=== PATIENT | male | born 2000 | race Caucasian/White ===

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

== ENCOUNTER 2021-01-11 15:37 | Inpatient (IN) | payer MEDICAID, OTHER ==
[~2021-01-11] VITALS: Ht 170.2 cm; Wt 58.0 kg
[2021-01-11] MEDS ORDERED: CETI-24 PO (15:51)
[2021-01-11] MEDS ORDERED: POTA10808 PO (15:51)
[2021-01-11 16:48] LABS: HEMATOCRIT 40.8 % (42.0-52.0); HEMOGLOBIN 13.6 g/dl (13.5-17.5); MEAN CORPUSCULAR HGB CONC 33.3 g/dl (32.0-36.5); PLATELET COUNT, AUTOMATED 259 10^3/uL (150-450); RED BLOOD COUNT 4.69 10^6/uL (4.30-6.10); WHITE BLOOD COUNT 9.5 10^3/uL (4.0-10.0)
[2021-01-11 17:15] LABS: AMPHETAMINES LEVEL URINE NEGATIVE (NEGATIVE); BARBITURATES URINE NEGATIVE (NEGATIVE); BENZODIAZEPINES URINE NEGATIVE (NEGATIVE); CANNABINOIDS URINE NEGATIVE (NEGATIVE); COCAINE METABOLITE URINE NEGATIVE (NEGATIVE); METHADONE URINE NEGATIVE (NEGATIVE); OPIATES URINE NEGATIVE (NEGATIVE); PHENCYCLIDINE URINE NEGATIVE (NEGATIVE)
[2021-01-11 17:24] LABS: ACETAMINOPHEN LEVEL < 2.0 UG/ML (10.0-30.0); ALBUMIN 4.3 GM/DL (3.2-5.2); ALT/SGPT 13 U/L (12-78); BILIRUBIN,DIRECT < 0.1 MG/DL (0.0-0.2); BILIRUBIN,TOTAL 0.4 MG/DL (0.2-1.0); BLOOD UREA NITROGEN 14 MG/DL (7-18); CARBON DIOXIDE LEVEL 28 MEQ/L (21-32); CHLORIDE LEVEL 108 MEQ/L (98-107); CREATININE FOR GFR 0.77 MG/DL (0.70-1.30); ETHYL ALCOHOL (ETHANOL) < 0.003 % (0.000-0.010); GLUCOSE, FASTING 83 MG/DL (70-100); POTASSIUM SERUM 3.9 MEQ/L (3.5-5.1); SALICYLATE LEVEL < 1.7 MG/DL (5.0-30.0); SODIUM LEVEL 142 MEQ/L (136-145); TOTAL PROTEIN 8.1 GM/DL (6.4-8.2)
[2021-01-11 18:39] LABS: RSV AMPLIFICATION NEGATIVE (NEGATIVE)
[2021-01-11] MEDS ORDERED: ACETAMINOPHEN TAB 650MG DOSE (2X325MG) PO PRN (18:45)
[2021-01-11] MEDS ORDERED: MOM 30ML SUSPENSION UDC PO PRN (18:45)
[2021-01-11] MEDS ORDERED: MAALOX 30 ML SUSP *UDC PO PRN (18:45)
[2021-01-11 21:39] VITALS: BP 136/89
[2021-01-11] MEDS: traZODone 50 MG TAB PO PRN (22:49)
[2021-01-12 06:55] VITALS: BP 148/83
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
[2021-01-12] MEDS: FLUoxetine 20 MG CAP PO SCH (14:12)
[2021-01-12 16:18] VITALS: BP 136/94
[2021-01-12] MEDS: POTASSIUM CITRATE 1080 MG (10MEQ) TAB PO SCH (17:36)
[2021-01-12] MEDS: CETIRIZINE (ZyrTEC) 10 MG TAB PO SCH (20:32)
[2021-01-12] MEDS: MESALAMINE 400 MG CAPSULE DELAYED RELEASE (DELZICOL) PO SCH (20:32)
[2021-01-12] MEDS: traZODone 50 MG TAB PO PRN (22:14)
[2021-01-13 06:30] VITALS: BP 112/62
[2021-01-13] MEDS: POTASSIUM CITRATE 1080 MG (10MEQ) TAB PO SCH ×3 (08:31→17:51)
[2021-01-13] MEDS: FLUoxetine 20 MG CAP PO SCH (08:31)
[2021-01-13] MEDS: MESALAMINE 400 MG CAPSULE DELAYED RELEASE (DELZICOL) PO SCH ×2 (08:32→20:16)
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
[2021-01-13 16:40] VITALS: BP 135/73
[2021-01-13] MEDS: CETIRIZINE (ZyrTEC) 10 MG TAB PO SCH (20:16)
[2021-01-13] MEDS: traZODone 50 MG TAB PO PRN (22:10)
[2021-01-14 06:21] VITALS: BP 130/70
[2021-01-14] MEDS: POTASSIUM CITRATE 1080 MG (10MEQ) TAB PO SCH ×3 (07:42→17:46)
[2021-01-14] MEDS: FLUoxetine 20 MG CAP PO SCH (09:10)
[2021-01-14] MEDS: MESALAMINE 400 MG CAPSULE DELAYED RELEASE (DELZICOL) PO SCH ×2 (09:11→21:42)
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
[2021-01-14 16:30] VITALS: BP 143/90
[2021-01-14] MEDS: CETIRIZINE (ZyrTEC) 10 MG TAB PO SCH (21:41)
[2021-01-14] MEDS: traZODone 50 MG TAB PO PRN (22:10)
[2021-01-15 06:11] VITALS: BP 117/56
[2021-01-15] MEDS: MESALAMINE 400 MG CAPSULE DELAYED RELEASE (DELZICOL) PO SCH ×2 (08:40→21:36)
[2021-01-15] MEDS: FLUoxetine 10 MG CAP PO SCH (08:40)
[2021-01-15] MEDS: POTASSIUM CITRATE 1080 MG (10MEQ) TAB PO SCH ×3 (08:40→17:34)
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
[2021-01-15 18:45] VITALS: BP 141/82
[2021-01-15] MEDS: CETIRIZINE (ZyrTEC) 10 MG TAB PO SCH (21:35)
[2021-01-15] MEDS: traZODone 50 MG TAB PO PRN (23:02)
[2021-01-16 06:00] VITALS: BP 90/50
[2021-01-16] MEDS: MESALAMINE 400 MG CAPSULE DELAYED RELEASE (DELZICOL) PO SCH ×2 (08:34→21:12)
[2021-01-16] MEDS: POTASSIUM CITRATE 1080 MG (10MEQ) TAB PO SCH ×3 (08:35→17:04)
[2021-01-16] MEDS: FLUoxetine 10 MG CAP PO SCH (08:35)
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
[2021-01-16 16:15] VITALS: BP 120/57
[2021-01-16] MEDS: CETIRIZINE (ZyrTEC) 10 MG TAB PO SCH (21:12)
[2021-01-16] MEDS: traZODone 50 MG TAB PO PRN (23:07)
[2021-01-17 06:16] VITALS: BP 99/55
[2021-01-17] MEDS: FLUoxetine 10 MG CAP PO SCH (08:22)
[2021-01-17] MEDS: POTASSIUM CITRATE 1080 MG (10MEQ) TAB PO SCH ×3 (08:22→17:11)
[2021-01-17] MEDS: MESALAMINE 400 MG CAPSULE DELAYED RELEASE (DELZICOL) PO SCH ×2 (08:22→21:18)
[2021-01-17 16:06] VITALS: BP 125/78
[2021-01-17] MEDS: CETIRIZINE (ZyrTEC) 10 MG TAB PO SCH (21:18)
[2021-01-17] MEDS: traZODone 50 MG TAB PO PRN (23:04)
[2021-01-18 06:25] VITALS: BP 96/55
[2021-01-18] MEDS: FLUoxetine 10 MG CAP PO SCH (08:06)
[2021-01-18] MEDS: POTASSIUM CITRATE 1080 MG (10MEQ) TAB PO SCH ×3 (08:06→18:02)
[2021-01-18] MEDS: MESALAMINE 400 MG CAPSULE DELAYED RELEASE (DELZICOL) PO SCH ×2 (08:06→21:32)
[2021-01-18 16:13] VITALS: BP 132/76
[2021-01-18] MEDS: CETIRIZINE (ZyrTEC) 10 MG TAB PO SCH (21:32)
[2021-01-18] MEDS: traZODone 50 MG TAB PO PRN (23:11)
[2021-01-19 06:41] VITALS: BP 119/83
[2021-01-19] MEDS ORDERED: FLUO20CA22 PO (08:08)
[2021-01-19] MEDS: POTASSIUM CITRATE 1080 MG (10MEQ) TAB PO SCH ×2 (08:23→12:30)
[2021-01-19] MEDS: MESALAMINE 400 MG CAPSULE DELAYED RELEASE (DELZICOL) PO SCH (08:23)
[2021-01-19] MEDS ORDERED: FLUoxetine 10 MG CAP PO SCH (09:00)
[2021-01-19] MEDS ORDERED: FLUoxetine 20 MG CAP PO SCH (09:00)
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
[2021-01-19] MEDS ORDERED: TRAZ-252 PO (11:55)
== END 2021-01-19 12:30 | disposition home or self-care (01) | DRG 754 ==
LOC: M ED 15:37 → M ED INP 18:41 → M PSY 20:48
PROVIDERS: ADMIT Psychiatry & Neurology Psychiatry; ATTEND Psychiatry & Neurology Child & Adolescent Psychiatry
DX: F43.21 Adjustment disorder with depressed mood (principal); K50.90 Crohn's disease, unspecified, without complications; R45.851 Suicidal ideations; Q61.5 Medullary cystic kidney; F43.10 Post-traumatic stress disorder, unspecified; I10 Essential (primary) hypertension; Z62.810 Personal history of physical and sexual abuse in childhood; Z20.822 Contact with and (suspected) exposure to COVID-19; Z79.899 Other long term (current) drug therapy; Z63.8 Other specified problems related to primary support group

== ENCOUNTER 2021-02-03 19:48 | Emergency (ER) | payer MEDICAID, OTHER ==
[~2021-02-03] VITALS: Ht 170.2 cm; Wt 57.6 kg
[~2021-02-03 19:48] MED LIST changes: +CETI-24 PO; +FLUO20CA22 PO; +POTA10808 PO; +TRAZ-252 PO
[2021-02-03] MEDS ORDERED: ONDANSETRON 4MG/2ML VIAL IV PRN (21:05)
[2021-02-03] MEDS ORDERED: NS 1,000 ML IV ONE (21:05)
[2021-02-03] MEDS ORDERED: ACETAMINOPHEN TAB 650MG DOSE (2X325MG) PO ONE (21:10)
[2021-02-03 21:52] LABS: BASO # 0.1 10^3/uL (0.0-0.2); BASO % 0.5 % (0.0-1.0); EOS # 2.6 10^3/uL (0.0-0.5); HEMATOCRIT 42.7 % (42.0-52.0); LYMPH # 1.8 10^3/uL (1.5-5.0); LYMPH % 16.9 % (24.0-44.0); MEAN CORPUSCULAR HEMOGLOBIN 28.6 pg (27.0-33.0); MEAN CORPUSCULAR HGB CONC 32.8 g/dl (32.0-36.5); MEAN CORPUSCULAR VOLUME 87.1 fl (80.0-96.0); MONO # 1.6 10^3/uL (0.0-0.8); MONO % 14.8 % (2.0-8.0); NEUTROPHILS # 4.6 10^3/uL (1.5-8.5); NEUTROPHILS % 43.1 % (36.0-66.0); PLATELET COUNT, AUTOMATED 277 10^3/uL (150-450); WHITE BLOOD COUNT 10.6 10^3/uL (4.0-10.0)
[2021-02-03] MEDS ORDERED: ISOVUE-370 76% 100ML VIAL As Ordered ONE (22:02)
[2021-02-03 22:17] LABS: ALBUMIN 3.9 GM/DL (3.2-5.2); ALT/SGPT 12 U/L (12-78); BILIRUBIN,DIRECT < 0.1 MG/DL (0.0-0.2); BILIRUBIN,TOTAL 0.3 MG/DL (0.2-1.0); LIPASE 64 U/L (73-393); TOTAL PROTEIN 7.6 GM/DL (6.4-8.2)
[2021-02-03 22:45] LABS: EOS % 24.4 % (0.0-3.0)
--- NOTE | 2021-02-03 23:16 | REPVR ---
PROCEDURE INFORMATION: Exam: CT Abdomen and Pelvis with Contrast Exam date and time: 02/03/21 (10:09pm) Age: 20 years old Clinical indication: LLQ pain. Rectal bleeding. Fever. History of Crohn's disease. TECHNIQUE: Imaging protocol: Computed tomography of the abdomen and pelvis with contrast. Radiation optimization: All CT scans at this facility use at least one of these dose optimization techniques: automated exposure control; mA and/or kV adjustment per patient size (includes targeted exams where dose is matched to clinical indication); or iterative reconstruction. Contrast material: Isovue 370 Contrast volume: 100 ml Contrast route: IV COMPARISON: CT ABDOMEN PELVIS of 04/23/15 FINDINGS: Liver: No mass. Mild fatty infiltration. Gallbladder and bile ducts: Normal. No calcified stones. No ductal dilation. Pancreas: Normal. No ductal dilation. Spleen: Prominent spleen. Adrenal glands: Normal. No mass. Kidneys and ureters: Normal. No hydronephrosis. Stomach and bowel: Extensive colonic wall thickening, extending from the distal transverse colon to the rectum. No abscess. No bowel obstruction. No free air. Appendix: No evidence of appendicitis. Intraperitoneal space: Unremarkable. No free air. No significant fluid collection. Vasculature: Unremarkable. No abdominal aortic aneurysm. Lymph nodes: Unremarkable. No enlarged lymph nodes. Urinary bladder: Unremarkable as visualized. Reproductive: Unremarkable as visualized. Bones/joints: Unremarkable. No acute fracture. Soft tissues: Unremarkable. IMPRESSION: Findings compatible with a nonspecific left-sided colitis, extending from the distal transverse colon to the rectum -- compatible with inflammatory bowel disease, eg. No bowel obstruction. No free air. No abscess. Clinical correlation is needed. Prominent spleen. Electronically signed by: Mildred Ramos On 02/03/2021 23:15:58 PM
[2021-02-03] MEDS ORDERED: AUGM875T28 PO (23:38)
[2021-02-03] MEDS ORDERED: ZOFR4TAB16 PO (23:39)
[2021-02-03] MEDS ORDERED: AUGMENTIN 875 MG TAB PO ONE (23:40)
[2021-02-03 23:53] VITALS: BP 131/64
== END 2021-02-03 23:55 | disposition home or self-care (01) ==
LOC: M ED 19:48
DX: K50.90 Crohn's disease, unspecified, without complications (principal); R11.2 Nausea with vomiting, unspecified; N18.9 Chronic kidney disease, unspecified; Q61.5 Medullary cystic kidney; Z79.899 Other long term (current) drug therapy
CPT/HCPCS: 74177; 80047; 80076; 83605; 83690; 85025; 96361; 96374; 99284; J2405; Q9967

== ENCOUNTER 2021-02-06 16:08 | Inpatient (IN) | payer OTHER ==
[~2021-02-06] VITALS: Ht 170.2 cm; Wt 56.8 kg
[~2021-02-06 16:08] MED LIST changes: +AUGM875T28 PO; +ZOFR4TAB16 PO
[2021-02-06] MEDS ORDERED: methylPREDNISolone 125MG 2ML VIAL IV ONE (16:45)
[2021-02-06] MEDS ORDERED: NS 1,000 ML IV ONE (16:45)
[2021-02-06 17:21] LABS: BASO # 0.1 10^3/uL (0.0-0.2); BASO % 0.4 % (0.0-1.0); EOS # 3.1 10^3/uL (0.0-0.5); HEMATOCRIT 40.4 % (42.0-52.0); HEMOGLOBIN 13.9 g/dl (13.5-17.5); LYMPH # 1.8 10^3/uL (1.5-5.0); LYMPH % 14.7 % (24.0-44.0); MEAN CORPUSCULAR HEMOGLOBIN 29.6 pg (27.0-33.0); MEAN CORPUSCULAR HGB CONC 34.4 g/dl (32.0-36.5); MONO # 1.6 10^3/uL (0.0-0.8); MONO % 13.2 % (2.0-8.0); NEUTROPHILS # 5.4 10^3/uL (1.5-8.5); PLATELET COUNT, AUTOMATED 277 10^3/uL (150-450); WHITE BLOOD COUNT 12.1 10^3/uL (4.0-10.0)
[2021-02-06 17:50] LABS: ALBUMIN 3.8 GM/DL (3.2-5.2); ALT/SGPT 12 U/L (12-78); BILIRUBIN,DIRECT < 0.1 MG/DL (0.0-0.2); BILIRUBIN,TOTAL 0.3 MG/DL (0.2-1.0); BLOOD UREA NITROGEN 7 MG/DL (7-18); CALCIUM LEVEL 8.9 MG/DL (8.5-10.1); CARBON DIOXIDE LEVEL 29 MEQ/L (21-32); CHLORIDE LEVEL 103 MEQ/L (98-107); CREATININE FOR GFR 0.72 MG/DL (0.70-1.30); GLUCOSE, FASTING 88 MG/DL (70-100); LIPASE 113 U/L (73-393); POTASSIUM SERUM 3.9 MEQ/L (3.5-5.1); SODIUM LEVEL 137 MEQ/L (136-145); TOTAL PROTEIN 7.4 GM/DL (6.4-8.2)
[2021-02-06] MEDS ORDERED: FLUO1TAB3 PO (18:59)
[2021-02-06] MEDS ORDERED: ONDA-83 PO (18:59)
[2021-02-06] MEDS ORDERED: TRAZ-186 PO (18:59)
[2021-02-06] MEDS ORDERED: POTA10808 PO ×2 (19:00→19:01)
[2021-02-06] MEDS ORDERED: traZODone 50 MG TAB PO PRN (19:05)
[2021-02-06 19:28] LABS: C REACTIVE PROTEIN QUANTITATIV 5.89 MG/DL (0.00-0.30)
[2021-02-06 20:15] LABS: ERYTHROCYTE SEDIMENTATION RATE 23 mm/hr (0-15)
--- NOTE | 2021-02-06 20:21 | HPEPDOC ---
General Date of Admission Feb 06, 2021 Date of Service: Feb 06, 2021 Chief Complaint The patient is a 20-year-old male admitted with a reason for visit of Crohn's flare with nausea/vomiting/diarrhea Source: Patient History of Present Illness Mr. Rock is a 20 year old male with Crohn's disease who presents with abdominal pain with associated nausea, vomiting, and diarrhea. He follow's with a GI specialist in [place] and is regularly on Remicade every 6 weeks and mesal amine. His last dose of Remicade was the beginning of December and his next dose is next week. He reports compliance with his medications, but started noticing red beads in his stool that looks like his mesalamine medication. Last week, he started to have severe LLQ and epigastric abdominal pain. It is an achy 8/10 pain that is worse with BM. He has been averaging 6 watery BM a day, but today had 10 watery BM. In addition, he has not been able to tolerate a solid diet and has trouble tolerated a full liquid diet. He has been nauseous and have nonbloody vomit 3 or 4 times over the week. Patient's CDAI is 290. Patient will be admitted for Crohn's flare. Home Medications Scheduled Cetirizine HCl (Cetirizine HCl) 10 Mg Tablet, 10 MG PO QHS, (Reported) Fluoxetine HCl (Fluoxetine HCl) 20 Mg Tablet, 20 MG PO QHS, (Reported) Infliximab Injection (Remicade) 100 Mg/10 Ml Vial, 100 MG IV Q6WKS, (Reported) Mesalamine (Delzicol) 400 Mg Capdr, 1,200 MG PO BID, (Reported) Potassium Citrate (Potassium Citrate 10MEQ (Urocit-K)) 10 Meq Tablet.er, 10 MEQ PO QAM, (Reported) Potassium Citrate (Potassium Citrate 10MEQ (Urocit-K)) 10 Meq Tablet.er, 20 MEQ PO QHS, (Reported) Scheduled PRN Ondansetron HCl (Ondansetron HCl) 4 Mg Tablet, 4 MG PO Q6-8HP PRN for NAUSEA OR VOMITING, (Reported) Trazodone HCl (Trazodone HCl) 50 Mg Tablet, 50 MG PO QHS PRN for SLEEP, (Reported) Allergies Coded Allergies: No Known Allergies (Unverified , 02/03/21) Past Medical History Medical History 1. Depression 2. Medullary sponge kidney 3. ADHD 4. Insomnia 5. Crohn's disease Surgical History 1. Right wrist surgery 2/2 fracture Family History He does not know biological parent's medical history Social History * Smoker: Denies Alcohol: Denies Drugs: denies A-FIB/CHADSVASC A-FIB History Current/History of A-Fib/PAF?: No Review of Systems Constitutional: Reports: Fever (100.9 on Tuesday) Eyes: Denies: Pain, Vision change ENT: Denies: Sore Throat Skin: Denies: Rash Pulmonary: Reports: Cough (started on Tuesday); Denies: Dyspnea Cardiovascular: Denies: Chest Pain Gastrointestinal: Reports: Nausea, Vomiting (3 to 4 times the past week), Abdominal Pain (Achy pain), Diarrhea (watery, 10 BMs today) Genitourinary: Reports: Dysuria (Started today) Hematologic: Denies: Bruising Neurological: Denies: Numbness Psych: Reports: Depression Physical Examination General Exam: Positive: Alert, Cooperative Eye Exam: Positive: EOMI; Negative: Sclera icteric ENT Exam: Positive: Atraumatic Neck Exam: Positive: Supple Chest Exam: Positive: Clear to auscultation; Negative: Rales, Rhonchi, Wheezing Heart Exam: Positive: Rate Normal, Regular Rhythm Abdomen Exam: Positive: Normal bowel sounds, Soft, Tenderness Extremity Exam: Negative: Edema Neuro Exam: Positive: Normal Speech, Cranial Nerves 3-12 NL Psych Exam: Positive: Mental status NL, Mood NL Vital Signs Vital Signs Date Time Temp Pulse Resp B/P (MAP) Pulse Ox O2 Delivery O2 Flow Rate FiO2 02/06/21 17:00 02/06/21 16:09 99.2 108 18 97 Room Air Laboratory Data Labs 24H Laboratory Tests 2 02/06/21 16:48: Immature Granulocyte % (Auto) 0.7, Neutrophils (%) (Auto) 45.0, Lymphocytes (%) (Auto) 14.7L, Monocytes (%) (Auto) 13.2H, Eosinophils (%) (Auto) 26.0H, Basophils (%) (Auto) 0.4, Neutrophils # (Auto) 5.4, Lymphocytes # (Auto) 1.8, Monocytes # (Auto) 1.6H, Eosinophils # (Auto) 3.1H, Basophils # (Auto) 0.1, Nucleated Red Blood Cells % (auto) 0.0, Anion Gap 5L, Lactic Acid Level 1.0, Calcium Level 8.9, Total Bilirubin 0.3, Direct Bilirubin < 0.1, Aspartate Amino Transf (AST/SGOT) 8, Alanine Aminotransferase (ALT/SGPT) 12, Alkaline Phosphatase 118H, C-Reactive Protein, Quantitative 5.89H, Total Protein 7.4, Albumin 3.8, Albumin/Globulin Ratio 1.1, Lipase 113 02/06/21 18:34: Coronavirus (COVID-19)(PCR) NEGATIVE CBC/BMP Laboratory Tests 02/06/21 16:48 Assessment/Plan Mr. Rock is a 20 year old male with Crohn's disease who presents with abdominal pain with associated nausea, vomiting, and diarrhea. This is secondary to Crohn's flare. Patient will be admitted for hydration and IV steroids. Patient would be put on a clear liquid diet. GI panel will be checked before starting on anti-diarrheals. Due to dysuria, will also check a UA. Plan / VTE VTE Prophylaxis Ordered?: Yes Plan Plan 1. Crohn's flare -CDAI score of 290 which demonstrate moderate to severely active Crohn's -CRP elevated at 5.89 -Patient has watery diarrhea and vomiting -Will start patient on clear liquid diet and IVF -Will start IV steroids for the flare -Pending GI panel 2. Dysuria -Pending UA results 3. Depression -Continue Fluoxetine 4. Insomnia -Continue PRN Trazodone 5. DVT ppx -Lovenox Disposition: pending improvement in symptoms CECILIA MONTEJO DO Feb 06, 2021 20:21
[2021-02-06 21:00] VITALS: BP 115/72
[2021-02-06] MEDS: NS 1,000 ML IV SCH (21:48)
[2021-02-06] MEDS: FLUoxetine 20 MG CAP PO SCH (21:48)
[2021-02-06] MEDS: POTASSIUM CITRATE 1080 MG (10MEQ) TAB PO SCH (21:49)
[2021-02-06] MEDS: CETIRIZINE (ZyrTEC) 10 MG TAB PO SCH (21:49)
[2021-02-06 22:00] VITALS: BP 115/72
[2021-02-07 06:00] VITALS: BP 124/62
[2021-02-07 06:21] LABS: HEMATOCRIT 42.9 % (42.0-52.0); MEAN CORPUSCULAR HEMOGLOBIN 28.3 pg (27.0-33.0); MEAN CORPUSCULAR HGB CONC 32.6 g/dl (32.0-36.5); MEAN CORPUSCULAR VOLUME 86.7 fl (80.0-96.0); PLATELET COUNT, AUTOMATED 308 10^3/uL (150-450); RED BLOOD COUNT 4.95 10^6/uL (4.30-6.10); WHITE BLOOD COUNT 9.1 10^3/uL (4.0-10.0)
[2021-02-07 06:48] LABS: BLOOD UREA NITROGEN 6 MG/DL (7-18); CARBON DIOXIDE LEVEL 25 MEQ/L (21-32); CHLORIDE LEVEL 105 MEQ/L (98-107); CREATININE FOR GFR 0.66 MG/DL (0.70-1.30); GLUCOSE, FASTING 128 MG/DL (70-100); POTASSIUM SERUM 4.4 MEQ/L (3.5-5.1); SODIUM LEVEL 137 MEQ/L (136-145)
[2021-02-07] MEDS: POTASSIUM CITRATE 1080 MG (10MEQ) TAB PO SCH ×2 (08:41→21:25)
[2021-02-07 09:00] VITALS: BP 118/70
[2021-02-07] MEDS: ENOXAPARIN 40MG/0.4ML SYRINGE (J1650 PER 10MG) SC SCH (09:31)
[2021-02-07] MEDS: methylPREDNISolone 125MG 2ML VIAL IV SCH (09:31)
--- NOTE | 2021-02-07 12:00 | IPNPDOC ---
Subjective Date Seen The patient was seen on 02/07/21. Subjective Chief Complaint/HPI Mr. Rock is a 20 year old male with Crohn's disease who presents with abdominal pain with associated nausea, vomiting, and diarrhea. Today, his abdominal pain improved, but still having watery diarrhea. He tolerated a clear liquid diet. Will advance to full liquid diet today. Otherwise denies chest pain or dyspnea. Objective Physical Examination General Exam: Positive: Alert, Cooperative Eye Exam: Positive: EOMI; Negative: Sclera icteric ENT Exam: Positive: Atraumatic Neck Exam: Positive: Supple Chest Exam: Positive: Clear to auscultation; Negative: Rales, Rhonchi, Wheezing Heart Exam: Positive: Rate Normal, Regular Rhythm Abdomen Exam: Positive: Normal bowel sounds, Soft, Tenderness Extremity Exam: Negative: Edema Neuro Exam: Positive: Normal Speech, Cranial Nerves 3-12 NL Psych Exam: Positive: Mental status NL, Mood NL Assessment /Plan Assessment Mr. Rock is a 20 year old male with Crohn's disease who presents with abdominal pain with associated nausea, vomiting, and diarrhea. This is secondary to Crohn's flare. Patient will be admitted for hydration and IV steroids. Patient would be put on a clear liquid diet. Patient has done well on clear liquid diet and advanced to full liquids. GI panel negative. UA negative. Will advance diet throughout day Plan/VTE VTE Prophylaxis Ordered?: Yes Plan 1. Crohn's flare -CDAI score of 290 which demonstrate moderate to severely active Crohn's -CRP elevated at 5.89 -GI panel negative -Continue IV steroids -Advance diet throughout day 2. Dysuria -UA negative 3. Depression -Continue Fluoxetine 4. Insomnia -Continue PRN Trazodone 5. DVT ppx -Lovenox Disposition: If diarrhea slows down and patient can tolerate a solid diet mayo rrow, possible discharge home tomorrow VS, I&O, 24H, Fishbone Vital Signs/I&O Vital Signs Date Time Temp Pulse Resp B/P (MAP) Pulse Ox O2 Delivery O2 Flow Rate FiO2 02/07/21 06:00 97.6 72 21 124/62 (82) 100 Room Air I&O- Last 24 Hours up to 6 AM 02/07/21 06:00 Intake Total 1870 ml Output Total 0 ml Balance 1870 ml Laboratory Data 24H LABS Laboratory Tests 2 02/06/21 16:48: Immature Granulocyte % (Auto) 0.7, Neutrophils (%) (Auto) 45.0, Lymphocytes (%) (Auto) 14.7L, Monocytes (%) (Auto) 13.2H, Eosinophils (%) (Auto) 26.0H, Basophils (%) (Auto) 0.4, Neutrophils # (Auto) 5.4, Lymphocytes # (Auto) 1.8, Monocytes # (Auto) 1.6H, Eosinophils # (Auto) 3.1H, Basophils # (Auto) 0.1, Nucleated Red Blood Cells % (auto) 0.0, Erythrocyte Sedimentation Rate 23H, Anion Gap 5L, Lactic Acid Level 1.0, Calcium Level 8.9, Total Bilirubin 0.3, Direct Bilirubin < 0.1, Aspartate Amino Transf (AST/SGOT) 8, Alanine Aminotransferase (ALT/SGPT) 12, Alkaline Phosphatase 118H, C-Reactive Protein, Quantitative 5.89H, Total Protein 7.4, Albumin 3.8, Albumin/Globulin Ratio 1.1, Lipase 113 02/06/21 18:34: Coronavirus (COVID-19)(PCR) NEGATIVE 02/07/21 06:08: Nucleated Red Blood Cells % (auto) 0.0, Anion Gap 7L, Calcium Level 9.0 02/07/21 06:44: Urine Color YELLOW, Urine Appearance CLEAR, Urine pH 6.0, Urine Specific [employer] 1.011, Urine Protein NEGATIVE, Urine Glucose (UA) 2+H, Urine Ketones 1+H, Urine Blood NEGATIVE, Urine Nitrite NEGATIVE, Urine Bilirubin NEGATIVE, Urine Urobilinogen 0.2, Urine Leukocyte Esterase NEGATIVE, Urine WBC (Auto) 0, Urine RBC (Auto) 1, Urine Hyaline Casts (Auto) 0, Urine Bacteria (Auto) NEGATIVE, Urine Squamous Epithelial Cells 0, Urine Mucus (Auto) SMALL, Urine Sperm (Auto) CBC/BMP Laboratory Tests 02/06/21 16:48 02/07/21 06:08 Microbiology Microbiology 02/07/21 Gastrointestinal Tract Panel (PCR) - Final, Complete PEE MONTEJOALEXANDRA IngramPrabhakar KING Feb 07, 2021 12:00
[2021-02-07 14:00] VITALS: BP 120/80
[2021-02-07] MEDS: NS 1,000 ML IV SCH (14:03)
[2021-02-07] MEDS: FLUoxetine 20 MG CAP PO SCH (21:24)
[2021-02-07] MEDS: CETIRIZINE (ZyrTEC) 10 MG TAB PO SCH (21:25)
[2021-02-07 22:00] VITALS: BP 113/57
[2021-02-08 06:00] VITALS: BP 116/56
[2021-02-08] MEDS: NS 1,000 ML IV SCH (06:29)
[2021-02-08 06:34] LABS: HEMOGLOBIN 12.6 g/dl (13.5-17.5); MEAN CORPUSCULAR HEMOGLOBIN 28.3 pg (27.0-33.0); MEAN CORPUSCULAR HGB CONC 32.3 g/dl (32.0-36.5); MEAN CORPUSCULAR VOLUME 87.4 fl (80.0-96.0); PLATELET COUNT, AUTOMATED 283 10^3/uL (150-450); RED BLOOD COUNT 4.46 10^6/uL (4.30-6.10); WHITE BLOOD COUNT 9.8 10^3/uL (4.0-10.0)
[2021-02-08 07:00] LABS: BLOOD UREA NITROGEN 10 MG/DL (7-18); CALCIUM LEVEL 8.8 MG/DL (8.5-10.1); CARBON DIOXIDE LEVEL 28 MEQ/L (21-32); CHLORIDE LEVEL 105 MEQ/L (98-107); CREATININE FOR GFR 0.67 MG/DL (0.70-1.30); GLUCOSE, FASTING 101 MG/DL (70-100); POTASSIUM SERUM 3.9 MEQ/L (3.5-5.1); SODIUM LEVEL 138 MEQ/L (136-145)
[2021-02-08] MEDS: ENOXAPARIN 40MG/0.4ML SYRINGE (J1650 PER 10MG) SC SCH (08:56)
[2021-02-08] MEDS: POTASSIUM CITRATE 1080 MG (10MEQ) TAB PO SCH (08:56)
[2021-02-08] MEDS: methylPREDNISolone 125MG 2ML VIAL IV SCH (08:56)
[2021-02-08] MEDS ORDERED: PRED5TA PO (09:01)
--- NOTE | 2021-02-08 22:23 | DS.PDOC ---
Discharge Summary General Date of Admission Feb 06, 2021 at 19:00 Date of Discharge Feb 08, 2021 Discharge Summary PROCEDURES PERFORMED DURING STAY: None ADMITTING DIAGNOSES: 1. Crohn's flare 2. Depression 3. Insomnia DISCHARGE DIAGNOSES: 1. Crohn's flare 2. Depression 3. Insomnia COMPLICATIONS/CHIEF COMPLAINT: Exacerbation Of Crohns Disease. HISTORY OF PRESENT ILLNESS: Mr. Rock is a 20 year old male with Crohn's disease who presents with abdominal pain with associated nausea, vomiting, and diarrhea. He follow's with a GI specialist in [place] and is regularly on Remicade every 6 weeks and mesalamine. His last dose of Remicade was the beginning of December and his next dose is next week. He reports compliance with his medications, but started noticing red beads in his stool that looks like his mesalamine medication. Last week, he started to have severe LLQ and epigastric abdominal pain. It is an achy 8/10 pain that is worse with BM. He has been averaging 6 watery BM a day, but today had 10 watery BM. In addition, he has not been able to tolerate a solid diet and has trouble tolerated a full liquid diet. He has been nauseous and have nonbloody vomit 3 or 4 times over the week. [facility]'s CDAI is 290. Patient will be admitted for Crohn's flare. HOSPITAL COURSE: Mr. Rock did well with IV steroids, IVF, and clear liquid diet. Abdominal pain improved and diarrhea started to slow down. Diet was advanced and he was able to tolerate a solid diet. Diarrhea improved and is becoming more solid. On day of discharge, he felt well and was discharged home with a prednisone taper. DISCHARGE MEDICATIONS: Please see below. ALLERGIES: Please see below. PHYSICAL EXAMINATION ON DISCHARGE: VITAL SIGNS: Please see below. GENERAL: Comfortable, in no apparent distress HEENT: Head normocephalic, atraumatic NECK: Supple CARDIOVASCULAR EXAMINATION: Regular rate and rhythm RESPIRATORY EXAMINATION: Lungs clear to auscultation bilaterally ABDOMINAL EXAMINATION: Soft, non-tender, normal bowel sounds EXTREMITIES: No pitting edema bilaterally SKIN: Warm and dry NEUROLOGICAL EXAMINATION: CN 3-12 grossly intact PSYCHIATRIC EXAMINATION: Normal mood and affect LABORATORY DATA: Please see below. IMAGING: None during this hospitalization. He recently had CT abd/pelvis on 02/03/2021 PROGNOSIS: Good ACTIVITY: As tolerated. DIET: As tolerated DISCHARGE PLAN: Home DISPOSITION: 01 Home, Self-Care. DISCHARGE INSTRUCTIONS: 1. Follow up with PCP in 1 week 2. Follow up with your GI specialist in [place] in 1 week 3. Take prednisone taper to completion DISCHARGE CONDITION: Stable. Total time spent on discharge planning, discharge summary, and medication reconciliation: 40 minutes Vital Signs/I&Os Vital Signs Date Time Temp Pulse Resp B/P (MAP) Pulse Ox O2 Delivery O2 Flow Rate FiO2 02/08/21 06:00 97.6 73 19 116/56 (76) 100 Room Air I&O- Last 24 Hours up to 6 AM 02/08/21 06:00 Intake Total 4435 ml Output Total 2350 ml Balance 2085 ml Laboratory Data Labs 24H Laboratory Tests 2 02/08/21 06:16: Nucleated Red Blood Cells % (auto) 0.0, Anion Gap 5L, Calcium Level 8.8 CBC/BMP Laboratory Tests 02/08/21 06:16 Microbiology Microbiology 02/07/21 Gastrointestinal Tract Panel (PCR) - Final, Complete Discharge Medications Scheduled Cetirizine HCl (Cetirizine HCl) 10 Mg Tablet, 10 MG PO QHS, (Reported) Fluoxetine HCl (Fluoxetine HCl) 20 Mg Tablet, 20 MG PO QHS, (Reported) Infliximab Injection (Remicade) 100 Mg/10 Ml Vial, 100 MG IV Q6WKS, (Reported) Mesalamine (Delzicol) 400 Mg Capdr, 1,200 MG PO BID, (Reported) Potassium Citrate (Potassium Citrate 10MEQ (Urocit-K)) 10 Meq Tablet.er, 10 MEQ PO QAM, (Reported) Potassium Citrate (Potassium Citrate 10MEQ (Urocit-K)) 10 Meq Tablet.er, 20 MEQ PO QHS, (Reported) Prednisone (Prednisone) 5 Mg Tablet, 5 MG PO TAPER Take 8 tabs on day1 and remove one daily until gone. Day1 take 8 tabs. Day2 take 7 tabs. Day 3 take 6 tabs, etc until gone. Scheduled PRN Ondansetron HCl (Ondansetron HCl) 4 Mg Tablet, 4 MG PO Q6-8HP PRN for NAUSEA OR VOMITING, (Reported) Trazodone HCl (Trazodone HCl) 50 Mg Tablet, 50 MG PO QHS PRN for SLEEP, (Reported) Allergies Coded Allergies: No Known Allergies (Unverified , 02/03/21) CECILIA MONTEJO DO Feb 08, 2021 22:23
== END 2021-02-08 10:39 | disposition home or self-care (01) | DRG 245 ==
LOC: M ED 16:08 → M ED INP 19:00 → M MSPAV 20:38
PROVIDERS: ADMIT Internal Medicine; ATTEND Internal Medicine
DX: K50.918 Crohn's disease, unspecified, with other complication (principal); Q61.5 Medullary cystic kidney; F32.9 Major depressive disorder, single episode, unspecified; F90.9 Attention-deficit hyperactivity disorder, unspecified type; G47.00 Insomnia, unspecified; Z79.899 Other long term (current) drug therapy; Z20.822 Contact with and (suspected) exposure to COVID-19; R30.0 Dysuria

== ENCOUNTER 2021-02-11 13:26 | Outpatient (CLI) | payer OTHER ==
[~2021-02-11] VITALS: Ht 167.6 cm; Wt 53.0 kg
[~2021-02-11 13:26] MED LIST changes: +FLUO1TAB3 PO; +ONDA-83 PO; +PRED5TA PO; +TRAZ-186 PO
[2021-02-11] MEDS ORDERED: INFLIXIMAB BIOSIMILAR 500 MG in NS 200 ML IV ONE (13:30)
[2021-02-11] MEDS ORDERED: NS 1,000 ML IV SCH (13:30)
[2021-02-11] MEDS ORDERED: ACETAMINOPHEN 650MG PO PRIOR TO INFUSION PO ONE (13:30)
[2021-02-11 13:40] VITALS: BP 128/69
[2021-02-11 15:13] VITALS: BP 130/65
== END 2021-02-11 15:15 | disposition home or self-care (01) ==
LOC: M INFU 13:26
PROVIDERS: ATTEND Student in an Organized Health Care Education/Training Program
DX: K51.90 Ulcerative colitis, unspecified, without complications (principal)
CPT/HCPCS: 96365; Q5103

== ENCOUNTER → 2021-03-20 | Outpatient (CLI) | payer OTHER ==
[2021-03-27 00:07] LABS: CALPROTECTIN STOOL 3323 ug/g (0-120)
== END ==
LOC: M LAB 12:21
PROVIDERS: ATTEND Physician Assistant
DX: K51.90 Ulcerative colitis, unspecified, without complications (principal); K63.89 Other specified diseases of intestine; R63.4 Abnormal weight loss

== ENCOUNTER → 2021-03-20 | Outpatient (CLI) | payer OTHER ==
[2021-03-20 13:17] LABS: HEMOGLOBIN 13.7 g/dl (13.5-17.5); MEAN CORPUSCULAR HEMOGLOBIN 28.8 pg (27.0-33.0); MEAN CORPUSCULAR HGB CONC 32.6 g/dl (32.0-36.5); MEAN CORPUSCULAR VOLUME 88.2 fl (80.0-96.0); PLATELET COUNT, AUTOMATED 233 10^3/uL (150-450); RED BLOOD COUNT 4.76 10^6/uL (4.30-6.10); WHITE BLOOD COUNT 9.1 10^3/uL (4.0-10.0)
[2021-03-20 13:45] LABS: ERYTHROCYTE SEDIMENTATION RATE 21 mm/hr (0-15)
[2021-03-20 13:52] LABS: BASOPHILS 1 % (0-1); EOSINOPHILS 24 % (0-3); LYMPHOCYTES 16 % (16-44); MONOCYTES 4 % (0-5); NEUTROPHILS 48 % (28-66); PLATELET ESTIMATE NORMAL (NORMAL)
[2021-03-20 14:02] LABS: ALBUMIN 3.7 GM/DL (3.2-5.2); ALT/SGPT 11 U/L (12-78); BILIRUBIN,TOTAL 0.4 MG/DL (0.2-1.0); BLOOD UREA NITROGEN 7 MG/DL (7-18); CALCIUM LEVEL 8.9 MG/DL (8.5-10.1); CARBON DIOXIDE LEVEL 23 MEQ/L (21-32); CHLORIDE LEVEL 106 MEQ/L (98-107); CREATININE FOR GFR 0.84 MG/DL (0.70-1.30); GLUCOSE, FASTING 151 MG/DL (70-100); POTASSIUM SERUM 3.7 MEQ/L (3.5-5.1); PTH INTACT 56.3 PG/ML (18.5-88.0); SODIUM LEVEL 138 MEQ/L (136-145); TOTAL 25(OH) VITAMIN D 21.9 NG/ML (30.0-100.0); TOTAL PROTEIN 7.2 GM/DL (6.4-8.2)
== END ==
LOC: M LAB 12:16
PROVIDERS: ATTEND Family Medicine
DX: K51.00 Ulcerative (chronic) pancolitis without complications (principal); E55.9 Vitamin D deficiency, unspecified

== ENCOUNTER 2021-03-25 13:10 | Outpatient (CLI) | payer OTHER ==
[~2021-03-25] VITALS: Ht 167.6 cm; Wt 53.0 kg
[2021-03-25 13:15] VITALS: BP 144/57
[2021-03-25] MEDS ORDERED: NS 1,000 ML IV SCH (13:30)
[2021-03-25] MEDS ORDERED: ACETAMINOPHEN 650MG PO PRIOR TO INFUSION PO ONE (13:30)
[2021-03-25] MEDS ORDERED: INFLIXIMAB BIOSIMILAR 500 MG in NS 200 ML IV ONE (13:30)
[2021-03-25 13:40] VITALS: BP 144/57
[2021-03-25 14:20] VITALS: BP 138/61
[2021-03-25 15:08] VITALS: BP 132/65
== END 2021-03-25 15:10 | disposition home or self-care (01) ==
LOC: M INFU 13:10
PROVIDERS: ATTEND Student in an Organized Health Care Education/Training Program
DX: K51.90 Ulcerative colitis, unspecified, without complications (principal)
CPT/HCPCS: 96365; Q5103

== ENCOUNTER 2021-04-22 13:36 | Outpatient (CLI) | payer OTHER ==
[~2021-04-22] VITALS: Ht 167.6 cm; Wt 53.0 kg
[~2021-04-22 13:36] MED LIST changes: +INFLIXIMAB BIOSIMILAR 600 MG in NS 190 ML IV ONE; +NS 1,000 ML IV SCH
[2021-04-22 13:48] VITALS: BP 135/83
[2021-04-22 14:11] VITALS: BP 135/83
[2021-04-22 15:00] VITALS: BP 118/67
[2021-04-22 16:05] VITALS: BP 139/71
== END 2021-04-22 16:00 | disposition home or self-care (01) ==
LOC: M INFU 13:36
PROVIDERS: ATTEND Student in an Organized Health Care Education/Training Program
DX: K51.90 Ulcerative colitis, unspecified, without complications (principal)
CPT/HCPCS: 96365; Q5103

== ENCOUNTER 2021-04-23 10:06 | Emergency (ER) | payer OTHER ==
[~2021-04-23] VITALS: Ht 167.6 cm; Wt 59.8 kg
[~2021-04-23 10:06] MED LIST changes: -INFLIXIMAB BIOSIMILAR 600 MG in NS 190 ML IV ONE; -NS 1,000 ML IV SCH
[2021-04-23 10:07] VITALS: BP 145/89
--- NOTE | 2021-04-23 11:52 | REP ---
INDICATION: hit head. COMPARISON: None. TECHNIQUE: Helical scanning is acquired. 5 mm axial images were reformatted. Coronal MPR images were generated. FINDINGS: Bone window settings demonstrate an intact bony calvarium. There is no evidence of skull fracture or incidental bony calvarial lesion. The visualized paranasal sinuses appear clear. No intraorbital abnormality is seen. On soft tissue window setting images; the lateral, third, and fourth ventricles are normal in size and position. Davis-white differentiation pattern is normal above and below the tentorium. There are is no evidence of intracranial hemorrhage. No mass, edema, infarction, or midline shift is seen. No extra-axial fluid collection is appreciated. IMPRESSION: Negative noncontrast head CT. <Electronically signed by Stephan Tapia > 04/23/21 [id number]
--- NOTE | 2021-04-23 11:53 | REP ---
INDICATION: hit head. COMPARISON: None. TECHNIQUE: CT cervical spine performed in the axial plane, with sagittal and coronal reconstruction images performed. FINDINGS: There is no acute compression fracture or malalignment. There is no prevertebral soft tissue swelling. Disc spaces are well preserved. There is normal cervical lordosis. There is no abnormal density in the spinal canal. IMPRESSION: No evidence of acute fracture or dislocation. <Electronically signed by Geoffrey Davis > 04/23/21 0815
== END 2021-04-23 12:11 | disposition home or self-care (01) ==
LOC: M ED 10:06
DX: S01.01XA Laceration without foreign body of scalp, initial encounter (principal); W22.09XA Striking against other stationary object, initial encounter; Y92.009 Unspecified place in unspecified non-institutional (private) residence as the place of occurrence of the external cause; Y93.89 Activity, other specified; Y99.8 Other external cause status; K50.90 Crohn's disease, unspecified, without complications; Q61.5 Medullary cystic kidney; F90.9 Attention-deficit hyperactivity disorder, unspecified type; F43.10 Post-traumatic stress disorder, unspecified; F41.9 Anxiety disorder, unspecified; F33.9 Major depressive disorder, recurrent, unspecified

== ENCOUNTER → 2021-04-29 | Outpatient (REF) | payer OTHER | LOC: M WUC 09:29 | PROVIDERS: ATTEND Physician Assistant | DX: J02.9 Acute pharyngitis, unspecified (principal) ==

== ENCOUNTER → 2021-05-08 | Outpatient (CLI) | payer OTHER | LOC: M LAB 14:52 | PROVIDERS: ATTEND Student in an Organized Health Care Education/Training Program | DX: K51.90 Ulcerative colitis, unspecified, without complications (principal) ==

== ENCOUNTER → 2021-05-20 | Outpatient (CLI) | payer OTHER ==
[~2021-05-20] VITALS: Ht 167.6 cm; Wt 53.0 kg
[~2021-05-20] MED LIST changes: +INFLIXIMAB BIOSIMILAR 600 MG in NS 190 ML IV ONE; +NS 1,000 ML IV SCH
[2021-05-20 13:45] VITALS: BP 141/64
[2021-05-20 14:35] VITALS: BP 130/67
[2021-05-20 15:25] VITALS: BP 138/61
== END ==
LOC: M INFU 13:42
PROVIDERS: ATTEND Student in an Organized Health Care Education/Training Program
DX: K51.90 Ulcerative colitis, unspecified, without complications (principal)
CPT/HCPCS: 96365; Q5103

== ENCOUNTER 2021-06-17 15:55 | Outpatient (CLI) | payer OTHER ==
[~2021-06-17] VITALS: Ht 165.1 cm; Wt 58.9 kg
[~2021-06-17 15:55] MED LIST changes: +ALBUTEROL SULFATE 2.5 MG/0.5 ML INH NEB SOLN INH PRN; +EPINEPHrine INJ 1 MG/ML 1ML AMP IM PRN; +diphenhydrAMINE 50MG/ML VIAL (J1200) IV PRN; +methylPREDNISolone 125MG 2ML VIAL IV PRN
[2021-06-17 16:10] VITALS: BP 116/70
[2021-06-17 16:42] VITALS: BP 129/62
[2021-06-17 17:30] VITALS: BP 129/75
== END 2021-06-17 17:35 | disposition home or self-care (01) ==
LOC: M INFU 15:55
PROVIDERS: ATTEND Student in an Organized Health Care Education/Training Program
DX: K51.90 Ulcerative colitis, unspecified, without complications (principal)
CPT/HCPCS: 96365; Q5103

== ENCOUNTER 2021-06-27 12:22 | Inpatient (IN) | payer OTHER ==
[~2021-06-27] VITALS: Ht 170.2 cm; Wt 68.6 kg
[~2021-06-27 12:22] MED LIST changes: -ALBUTEROL SULFATE 2.5 MG/0.5 ML INH NEB SOLN INH PRN; -EPINEPHrine INJ 1 MG/ML 1ML AMP IM PRN; -INFLIXIMAB BIOSIMILAR 600 MG in NS 190 ML IV ONE; -NS 1,000 ML IV SCH; -diphenhydrAMINE 50MG/ML VIAL (J1200) IV PRN; -methylPREDNISolone 125MG 2ML VIAL IV PRN
[2021-06-27] MEDS ORDERED: NS 1,000 ML IV SCH (12:35)
[2021-06-27 12:45] LABS: BASO % 0.3 % (0.0-1.0); EOS # 0.4 10^3/uL (0.0-0.5); EOS % 4.9 % (0.0-3.0); HEMATOCRIT 43.5 % (42.0-52.0); HEMOGLOBIN 14.6 g/dl (13.5-17.5); LYMPH # 2.6 10^3/uL (1.5-5.0); LYMPH % 34.2 % (24.0-44.0); MEAN CORPUSCULAR HGB CONC 33.6 g/dl (32.0-36.5); MEAN CORPUSCULAR VOLUME 86.3 fl (80.0-96.0); MONO # 0.7 10^3/uL (0.0-0.8); MONO % 8.7 % (2.0-8.0); NEUTROPHILS % 51.3 % (36.0-66.0); PLATELET COUNT, AUTOMATED 228 10^3/uL (150-450); RED BLOOD COUNT 5.04 10^6/uL (4.30-6.10); WHITE BLOOD COUNT 7.7 10^3/uL (4.0-10.0)
[2021-06-27] MEDS ORDERED: CHARCOAL ACTIVATED LIQUID 25 GM/120 ML BTL PO ONE (12:45)
[2021-06-27] MEDS ORDERED: MAG SULF 1GM/100ML (MAG RUN) 1 GM in IV 1 EA IV ONE ×2 (12:55→14:00)
[2021-06-27 13:26] LABS: ACETAMINOPHEN LEVEL < 2.0 UG/ML (10.0-30.0); ALBUMIN 4.3 GM/DL (3.2-5.2); ALT/SGPT 21 U/L (12-78); BILIRUBIN,DIRECT 0.1 MG/DL (0.0-0.2); BILIRUBIN,TOTAL 0.6 MG/DL (0.2-1.0); BLOOD UREA NITROGEN 13 MG/DL (7-18); CALCIUM LEVEL 8.8 MG/DL (8.5-10.1); CARBON DIOXIDE LEVEL 25 MEQ/L (21-32); CHLORIDE LEVEL 111 MEQ/L (98-107); CPK CREATINE PHOSPHOKINASE 161 U/L (39-308); CREATININE FOR GFR 0.83 MG/DL (0.70-1.30); ETHYL ALCOHOL (ETHANOL) < 0.003 % (0.000-0.010); GLUCOSE, FASTING 110 MG/DL (70-100); POTASSIUM SERUM 3.7 MEQ/L (3.5-5.1); SALICYLATE LEVEL < 1.7 MG/DL (5.0-30.0); SODIUM LEVEL 142 MEQ/L (136-145); TOTAL PROTEIN 7.6 GM/DL (6.4-8.2)
--- NOTE | 2021-06-27 14:38 | HPEPDOC ---
General Date of Admission 06/27/21 Date of Service: Jun 27, 2021 Chief Complaint The patient is a 21-year-old male admitted with a reason for visit of Overdose. Source: Patient Exam Limitations: No limitations History of Present Illness Patient is 21 years old male with past medical history of anxiety, depression, Crohn disease on Remicade presented to hospital after suicidal attempt. Patient stated that he broke up with his girlfriend and around noon time he took from 15 to 20 pills of trazodone and 5 to 6 pills of Prozac. In ER patient received Charcoal, poison control was contacted they recommended IV magnesium sulfate. Patient was found to have QTC prolongation on EKG. QTC was 535. Patient denied fever, chills, diarrhea or dysuria. He did not have vomiting. Patient stated that he had suicidal ideation in the past Home Medications Scheduled Fluoxetine HCl (Fluoxetine HCl) 20 Mg Tablet, 40 MG PO QHS, (Reported) Infliximab Injection (Remicade) 100 Mg/10 Ml Vial, 100 MG IV Q6WKS, (Reported) Mesalamine (Delzicol) 400 Mg Capdr, 1,200 MG PO BID, (Reported) Potassium Citrate (Potassium Citrate 10MEQ (Urocit-K)) 10 Meq Tablet.er, 10 MEQ PO QAM, (Reported) Potassium Citrate (Potassium Citrate 10MEQ (Urocit-K)) 10 Meq Tablet.er, 20 MEQ PO QHS, (Reported) Scheduled PRN Trazodone HCl (Trazodone HCl) 50 Mg Tablet, 50 MG PO QHS PRN for SLEEP, (Reported) Allergies Coded Allergies: No Known Allergies (Unverified , 02/03/21) Past Medical History Medical History anxiety, depression, Crohn disease on Remicade Family History Mom has depression Social History * Smoker: other (vaping) Alcohol: Denies Drugs: denies A-FIB/CHADSVASC A-FIB History Current/History of A-Fib/PAF?: No Current PO Anticoag Therapy: No Review of Systems Constitutional: Denies: Chills, Fever Eyes: Denies: Pain ENT: Denies: Head Aches Skin: Denies: Rash Pulmonary: Denies: Dyspnea Cardiovascular: Denies: Chest Pain Gastrointestinal: Denies: Nausea Genitourinary: Denies: Dysuria Hematologic: Denies: Bruising Endocrine: Denies: Polydipsia Musculoskeletal: Denies: Neck Pain Neurological: Denies: Weakness Psych: Reports: Depression Physical Examination General Exam: Positive: Cooperative, Mild Distress Eye Exam: Positive: PERRLA ENT Exam: Positive: Atraumatic Neck Exam: Positive: Supple; Negative: JVD Chest Exam: Positive: Clear to auscultation Heart Exam: Positive: Rate Normal Telemetry: Positive: No significant arrhythmia Abdomen Exam: Positive: Normal bowel sounds Extremity Exam: Negative: Clubbing Skin Exam: Positive: Nl turgor and temperature Neuro Exam: Positive: Strength at 5/5 X4 ext Psych Exam: Positive: Oriented x 3 Vital Signs Vital Signs Date Time Temp Pulse Resp B/P (MAP) Pulse Ox O2 Delivery O2 Flow Rate FiO2 06/27/21 13:52 78 94 06/27/21 13:45 93/48 (63) 06/27/21 12:30 98.1 16 Room Air Laboratory Data Labs 24H Laboratory Tests 2 06/27/21 12:34: Immature Granulocyte % (Auto) 0.6, Neutrophils (%) (Auto) 51.3, Lymphocytes (%) (Auto) 34.2, Monocytes (%) (Auto) 8.7H, Eosinophils (%) (Auto) 4.9H, Basophils (%) (Auto) 0.3, Neutrophils # (Auto) 4.0, Lymphocytes # (Auto) 2.6, Monocytes # (Auto) 0.7, Eosinophils # (Auto) 0.4, Basophils # (Auto) 0.0, Nucleated Red Bl ood Cells % (auto) 0.0, Anion Gap 6L, Calcium Level 8.8, Total Bilirubin 0.6, Direct Bilirubin 0.1, Aspartate Amino Transf (AST/SGOT) 17, Alanine Aminotransferase (ALT/SGPT) 21, Alkaline Phosphatase 112, Total Creatine Kinase 161, Total Protein 7.6, Albumin 4.3, Albumin/Globulin Ratio 1.3, Thyroid S timulating Hormone (TSH) 1.800, Salicylates Level < 1.7L, Acetaminophen Level < 2.0L, Ethyl Alcohol Level < 0.003 CBC/BMP Laboratory Tests 06/27/21 12:34 Assessment/Plan Patient is 21 years old male with past medical history of anxiety, depression, Crohn disease on Remicade presented to hospital after suicidal attempt. Patient stated that he broke up with his girlfriend and around noon time he took from 15 to 20 pills of trazodone and 5 to 6 pills of Prozac. In ER patient received Charcoal, poison control was contacted they recommended IV magnesium sulfate. Patient was found to have QTC prolongation on EKG. QTC was 535. Patient denied fever, chills, diarrhea or dysuria. He did not have vomiting. Patient stated that he had suicidal ideation in the past Problems (1) Overdose of trazodone Status: Acute Problem Text: Telemetry Continue to monitor EKG every 6 hours IV fluid Follow recommendation from poison control (2) Suicidal ideation Status: Acute Problem Text: Bacilioter (3) Depression Status: Acute Problem Text: We will ask psychiatrist to evaluate the patient after initial stabilization Plan / VTE VTE Prophylaxis Ordered?: No VTE Exclusion Mechanical Proph: Low Risk for VTE CLIFTON SANCHEZ DO Jun 27, 2021 14:38
[2021-06-27 15:45] LABS: RSV AMPLIFICATION NEGATIVE (NEGATIVE)
[2021-06-27] MEDS ORDERED: HOME MED LIST COMPLETE! XX SCH (16:45)
[2021-06-27 17:00] VITALS: BP 102/78
[2021-06-27] MEDS: NS 0.45% 1,000 ML IV SCH (17:03)
[2021-06-27 20:00] VITALS: BP 140/80
--- NOTE | 2021-06-27 20:31 | ECGEPIP ---
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
[2021-06-28] VITALS: BP 100/70
[2021-06-28] MEDS: NS 0.45% 1,000 ML IV SCH (01:23)
[2021-06-28 04:00] VITALS: BP 98/50
[2021-06-28 06:03] LABS: MEAN CORPUSCULAR HEMOGLOBIN 28.9 pg (27.0-33.0); MEAN CORPUSCULAR HGB CONC 32.5 g/dl (32.0-36.5); MEAN CORPUSCULAR VOLUME 88.9 fl (80.0-96.0); PLATELET COUNT, AUTOMATED 207 10^3/uL (150-450); WHITE BLOOD COUNT 6.7 10^3/uL (4.0-10.0)
[2021-06-28 06:35] LABS: ALBUMIN 3.2 GM/DL (3.2-5.2); ALT/SGPT 21 U/L (12-78); BILIRUBIN,TOTAL 0.4 MG/DL (0.2-1.0); BLOOD UREA NITROGEN 10 MG/DL (7-18); CALCIUM LEVEL 8.2 MG/DL (8.5-10.1); CARBON DIOXIDE LEVEL 25 MEQ/L (21-32); CHLORIDE LEVEL 109 MEQ/L (98-107); CREATININE FOR GFR 0.71 MG/DL (0.70-1.30); GLUCOSE, FASTING 87 MG/DL (70-100); MAGNESIUM LEVEL 2.1 MG/DL (1.8-2.4); SODIUM LEVEL 140 MEQ/L (136-145); TOTAL PROTEIN 5.9 GM/DL (6.4-8.2)
[2021-06-28 07:39] LABS: AMPHETAMINES LEVEL URINE NEGATIVE (NEGATIVE); BARBITURATES URINE NEGATIVE (NEGATIVE); BENZODIAZEPINES URINE NEGATIVE (NEGATIVE); CANNABINOIDS URINE NEGATIVE (NEGATIVE); COCAINE METABOLITE URINE NEGATIVE (NEGATIVE); METHADONE URINE NEGATIVE (NEGATIVE); OPIATES URINE NEGATIVE (NEGATIVE); PHENCYCLIDINE URINE NEGATIVE (NEGATIVE)
[2021-06-28 08:00] VITALS: BP 107/54
--- NOTE | 2021-06-28 11:04 | ECGEPIP ---
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
--- NOTE | 2021-06-28 11:08 | ECGEPIP ---
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
--- NOTE | 2021-06-28 11:08 | ECGEPIP ---
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
--- NOTE | 2021-06-28 11:28 | IPNPDOC ---
Text Note Date of Service The patient was seen on 06/28/21. NOTE Subjective: No new acute events overnight. Patient denies fever, chills, chest pain, palpitations Objective: GENERAL APPEARANCE: NAD HEENT: no scleral icterus, no JVD, EOMI CARDIOVASCULAR: S1S2 LUNGS: CTA ABDOMEN: soft & not tender w palpation MUSCULOSKELETAL: no cyanosis, no swelling INTEGUMENT: no generalized pallor NEUROLOGICAL: cranial nerve function from 2-12 intact, follows commands, speech not dysarthric Assessment/Plan Patient is 21 years old male with past medical history of anxiety, depression, Crohn disease on Remicade presented to hospital after suicidal attempt. Patient stated that he broke up with his girlfriend and around noon time he took from 15 to 20 pills of trazodone and 5 to 6 pills of Prozac. In ER patient received Charcoal, poison control was contacted they recommended IV magnesium sulfate. Patient was found to have QTC prolongation on EKG. QTC was 535. Patient denied fever, chills, diarrhea or dysuria. He did not have vomiting. Patient stated that he had suicidal ideation in the past Problems (1) Overdose of trazodone Telemetry Morning EKG shows QTC prolongation of less than 500 Appreciate/agree with psych consult (2) Suicidal ideation Sitter (3) Depression Defer treatment to psych team LING,Cindy, I+O VSCindy, I+O Laboratory Tests 06/27/21 12:34 06/28/21 05:28 Vital Signs Date Time Temp Pulse Resp B/P (MAP) Pulse Ox O2 Delivery O2 Flow Rate FiO2 06/28/21 08:00 98.5 74 14 107/54 (71) 97 Room Air I&O- Last 24 Hours up to 6 AM 06/28/21 06:00 Intake Total 2100 ml Output Total 0 ml Balance 2100 ml CLIFTON SANCHEZ DO Jun 28, 2021 11:28
[2021-06-28 12:00] VITALS: BP 108/68
[2021-06-28] MEDS: MESALAMINE 400 MG CAPSULE DELAYED RELEASE (DELZICOL) PO SCH ×2 (12:05→20:39)
[2021-06-28 16:00] VITALS: BP 122/57
[2021-06-28 20:00] VITALS: BP 98/47
--- NOTE | 2021-06-28 20:44 | MHCR ---
[facility] CONSULTATION DATE: 06/28/2021 IDENTIFYING DATA: This is a 23-year-old, male, single, living by himself, was admitted because of suicide attempt. Consult was called to evaluate his depression and suicidal ideation. HISTORY OF PRESENT ILLNESS: Patient has a history of depression. [facility]. He had last psychiatric hospitalization in the month of December for depression and suicidal ideation. After breaking up with his girlfriend, he overdosed on six pills of Prozac and 15-20 pills of trazodone. In the emergency room (ER), patient received charcoal. Poison Control was contacted, they recommended IV magnesium sulfate. His QTc interval was 535, which has come down to less than 400 now. Patient denies any suicidal thoughts now. His sleep and appetite are good. CURRENT MEDICATIONS: Are: - fluoxetine 40 mg once daily PAST PSYCHIATRIC HISTORY: One psychiatric hospitalization before. PAST MEDICAL HISTORY: Patient has a history of Crohn's disease and medullary sponge kidney disease. FAMILY HISTORY: He was raised by mostly his grandparents. PERSONAL HISTORY: He was born in [place]. Denies use of any alcohol or any other drugs. Currently working in [employer]. MENTAL STATUS EXAMINATION: Casually dressed, laying in his bed, somewhat depressed, affect is blunted. Psychomotor activity is retarded. Denies any auditory or visual hallucinations. Denies suicidal or homicidal ideas. Attention and concentration are good. Oriented to time, place, and person. His insight and judgment are limited. ASSESSMENT: Major depressive disorder, recurrent. PLAN: Is to: Transfer the patient to inpatient mental health unit (IM) when the patient is medically stable.
[2021-06-29 04:00] VITALS: BP 102/65
[2021-06-29 07:25] VITALS: BP 123/60
[2021-06-29] MEDS: MESALAMINE 400 MG CAPSULE DELAYED RELEASE (DELZICOL) PO SCH ×2 (09:39→20:28)
--- NOTE | 2021-06-29 11:15 | IPNPDOC ---
Text Note Date of Service The patient was seen on 06/29/21. NOTE Subjective: No new acute events overnight. Objective: GENERAL APPEARANCE: NAD HEENT: no scleral icterus, no JVD, EOMI CARDIOVASCULAR: S1S2 LUNGS: CTA ABDOMEN: soft & not tender w palpation MUSCULOSKELETAL: no cyanosis, no swelling INTEGUMENT: no generalized pallor NEUROLOGICAL: cranial nerve function from 2-12 intact, follows commands, speech not dysarthric Assessment/Plan Patient is 21 years old male with past medical history of anxiety, depression, Crohn disease on Remicade presented to hospital after suicidal attempt. Patient stated that he broke up with his girlfriend and around noon time he took from 15 to 20 pills of trazodone and 5 to 6 pills of Prozac. In ER patient received Charcoal, poison control was contacted they recommended IV magnesium sulfate. Patient was found to have QTC prolongation on EKG. QTC was 535. Patient denied fever, chills, diarrhea or dysuria. He did not have vomiting. Patient stated that he had suicidal ideation in the past Problems (1) Overdose of trazodone Telemetry EKG shows QTC prolongation of less than 500 Psych team saw him yesterday, recommendation to transfer to [facility]. Await bed (2) Suicidal ideation Sitter (3) Depression Defer treatment to psych team VS,Cindy, I+O VS, Cindy, I+O Vital Signs Date Time Temp Pulse Resp B/P (MAP) Pulse Ox O2 Delivery O2 Flow Rate FiO2 06/29/21 07:25 97.0 61 18 123/60 (81) 97 Room Air I&O- Last 24 Hours up to 6 AM 06/29/21 06:00 Intake Total 2092 ml Output Total 850 ml Balance 1242 ml CLIFTON SANCHEZ DO Jun 29, 2021 11:15
[2021-06-29 15:32] VITALS: BP 132/73
--- NOTE | 2021-06-29 16:12 | DS.PDOC ---
Discharge Summary General Date of Admission Jun 27, 2021 at 14:16 Date of Discharge 06/29/21 Discharge Summary PROCEDURES PERFORMED DURING STAY: [None]. ADMITTING DIAGNOSES: Overdose of trazodone Suicidal ideation Depression DISCHARGE DIAGNOSES: Overdose of trazodone Suicidal ideation Depression COMPLICATIONS/CHIEF COMPLAINT: Overdose Of Trazodone. HISTORY OF PRESENT ILLNESS: Patient is 21 years old male with past medical history of anxiety, depression, Crohn disease on Remicade presented to hospital after suicidal attempt. Patient stated that he broke up with his girlfriend and around noon time he took from 15 to 20 pills of trazodone and 5 to 6 pills of Prozac. In ER patient received Charcoal, poison control was contacted they recommended IV magnesium sulfate. Patient was found to have QTC prolongation on EKG. QTC was 535. Patient denied fever, chills, diarrhea or dysuria. He did not have vomiting. Patient stated that he had suicidal ideation in the past HOSPITAL COURSE: During the hospital stay the following issue addressed (1) Overdose of trazodone Telemetry EKG shows QTC prolongation of less than 500 Psych team saw him yesterday, recommendation to transfer to [facility]. (2) Suicidal ideation Sitter (3) Depression Defer treatment to psych team DISCHARGE MEDICATIONS: Please see below. ALLERGIES: Please see below. PHYSICAL EXAMINATION ON DISCHARGE: VITAL SIGNS: Please see below. GENERAL APPEARANCE: NAD HEENT: no scleral icterus, no JVD, EOMI CARDIOVASCULAR: S1S2 LUNGS: CTA ABDOMEN: soft & not tender w palpation MUSCULOSKELETAL: no cyanosis, no swelling INTEGUMENT: no generalized pallor NEUROLOGICAL: cranial nerve function from 2-12 intact, follows commands, speech not dysarthric LABORATORY DATA: Please see below. PROGNOSIS: Fair ACTIVITY: [As tolerated]. DIET: Regular] DISCHARGE PLAN: Transfer to [facility] DISCHARGE CONDITION: [Stable]. TIME SPENT ON DISCHARGE:40 minutes. Vital Signs/I&Os Vital Signs Date Time Temp Pulse Resp B/P (MAP) Pulse Ox O2 Delivery O2 Flow Rate FiO2 06/29/21 15:32 99.0 69 18 132/73 (92) 98 Room Air I&O- Last 24 Hours up to 6 AM 06/29/21 06:00 Intake Total 2092 ml Output Total 850 ml Balance 1242 ml Discharge Medications Scheduled Fluoxetine HCl (Fluoxetine HCl) 20 Mg Tablet, 40 MG PO QHS, (Reported) Infliximab Injection (Remicade) 100 Mg/10 Ml Vial, 100 MG IV Q6WKS, (Reported) Mesalamine (Delzicol) 400 Mg Capdr, 1,200 MG PO BID, (Reported) Potassium Citrate (Potassium Citrate 10MEQ (Urocit-K)) 10 Meq Tablet.er, 10 MEQ PO QAM, (Reported) Potassium Citrate (Potassium Citrate 10MEQ (Urocit-K)) 10 Meq Tablet.er, 20 MEQ PO QHS, (Reported) Scheduled PRN Trazodone HCl (Trazodone HCl) 50 Mg Tablet, 50 MG PO QHS PRN for SLEEP, (Reported) Allergies Coded Allergies: No Known Allergies (Unverified , 02/03/21) CLIFTON SANCHEZ DO Jun 29, 2021 16:12
[2021-06-29 20:00] VITALS: BP 118/56
--- NOTE | 2021-06-29 20:36 | ECGEPIP ---
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
--- NOTE | 2021-06-29 20:55 | ECGEPIP ---
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
== END 2021-06-29 20:40 | DRG 812 ==
LOC: M ED 12:22 → M ED INP 14:16 → ENRESERV 16:00 → M PCU 16:57
PROVIDERS: ADMIT Internal Medicine; ATTEND Internal Medicine
DX: T43.212A Poisoning by selective serotonin and norepinephrine reuptake inhibitors, intentional self-harm, initial encounter (principal); F33.9 Major depressive disorder, recurrent, unspecified; K50.90 Crohn's disease, unspecified, without complications; Q61.5 Medullary cystic kidney; F41.9 Anxiety disorder, unspecified; F17.290 Nicotine dependence, other tobacco product, uncomplicated; R94.31 Abnormal electrocardiogram [ECG] [EKG]; Z63.5 Disruption of family by separation and divorce; Z79.899 Other long term (current) drug therapy

== ENCOUNTER 2021-06-29 17:03 | Inpatient (IN) | payer MEDICAID, OTHER ==
[~2021-06-29] VITALS: Ht 170.2 cm; Wt 64.0 kg
[2021-06-29] MEDS ORDERED: traZODone 50 MG TAB PO PRN (18:10)
[2021-06-29] MEDS ORDERED: MOM 30ML SUSPENSION UDC PO PRN (18:10)
[2021-06-29] MEDS ORDERED: LORazepam 2 MG TAB PO PRN (18:10)
[2021-06-29] MEDS ORDERED: IBUPROFEN 400MG TAB PO PRN (18:10)
[2021-06-29] MEDS ORDERED: OLANZapine 5 MG TAB PO PRN (18:10)
[2021-06-29] MEDS ORDERED: MAALOX 30 ML SUSP *UDC PO PRN (18:10)
[2021-06-29] MEDS: THIAMINE 100 MG TAB PO SCH (21:00)
[2021-06-29 21:04] VITALS: BP 120/76
[2021-06-30 05:55] VITALS: BP 107/52
[2021-06-30] MEDS ORDERED: FLUoxetine 20 MG CAP PO SCH (09:00)
[2021-06-30] MEDS: NICOTINE 14 MG/24 HR TRANSDERMAL TD SCH (09:00)
[2021-06-30] MEDS: FOLIC ACID 1 MG TAB PO SCH (09:00)
[2021-06-30] MEDS: MULTIVITAMINS/MINERALS THERAP 1 TAB PO SCH (09:00)
[2021-06-30] MEDS: THIAMINE 100 MG TAB PO SCH ×2 (09:00→20:45)
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
--- NOTE | 2021-06-30 17:25 | HPE ---
HISTORY AND PHYSICAL DATE OF ADMISSION: 06/29/2021 CHIEF COMPLAINT: Severe depression, trazodone overdose, admitted to the inpatient mental health unit for suicidal ideation, posttraumatic stress disorder (PTSD), and major depressive disorder. HISTORY OF PRESENT ILLNESS: This is a 21-year-old male with a history of anxiety, depression, Crohn's disease, on Remicade and mesalamine, PTSD, major depressive disorder, tobacco use, admitted to the medical floor June 27 to June 29, medically optimized after trazodone overdose, receiving intravenous (IV) magnesium sulfate in the intensive care unit (ICU). Discharged to inpatient mental health unit. Patient is currently denying any fever, chills, changes in appetite, weight, sleep habits, nausea, vomiting, diarrhea, abdominal pain, bright red blood per rectum, melena, black, tarry stools, shortness of breath, chest pain, pressure, or tightness, lightheadedness or syncope, dysuria, urgency, frequency, flank pain, chills, polyuria, polydipsia, polyphagia, muscle aches, joint pain. He admits to having depression, PTSD, anxiety, and recent suicide attempt. He is currently requesting is mesalamine to be resumed and his every 4 weeks Remicade infusion. MEDICAL HISTORY: 1. PTSD. 2. Anxiety. 3. Depression. 4. Crohn's disease. 5. Medullary sponge kidney. 6. Attention deficit hyperactivity disorder (ADHD). PAST SURGICAL HISTORY: 1. Right wrist repair. 2. Colonoscopy. 3. Du due to traumatic head injury. SOCIAL HISTORY: Works at [employer]. Single. Uses nicotine vaping. Denies alcohol or recreational drug use. REVIEW OF SYSTEMS: A 10-point system negative aside from positive findings in history of present illness (HPI). PHYSICAL EXAMINATION: Temperature 97, pulse 69, respiratory rate 16, blood pressure 107/52, 99% on room air. GENERAL: Awake, alert, oriented times three, answering questions appropriately. No distress. No pallor or icterus. HEENT: Moist mucous membranes. LUNGS: Clear to auscultation. No wheezing, rales, or rhonchi. HEART: S1, S2, sinus rhythm. ABDOMEN: Soft, nontender, nondistended. Positive bowel sounds. EXTREMITIES: No cyanosis, clubbing, or pitting edema. June 28 laboratory data has been reviewed. ASSESSMENT AND PLAN: This is a 21-year-old male with Crohn's disease, anxiety, depression, posttraumatic stress disorder (PTSD), attention deficit hyperactivity disorder (ADHD), medullary sponge kidney, admitted to the medical floor June 27 to June 29 for trazodone overdose due to severe depression and suicide ideation, now transferred to the inpatient mental health unit. CURRENT ISSUES: 1. Crohn's disease, stable without exacerbation. Resume on mesalamine 1200 mg twice a day. Patient has no acute complaints and should be resumed on his intravenous (IV) Remicade infusions. Will ask [facility] Pharmacy when he is due to have this done and will have to resume. 2. Anxiety and depression. Recent trazodone overdose, PTSD, ADHD. Deferred to psychiatric team for management. Monitor for QT prolongations while he is on selective serotonin reuptake inhibitors (SSRIs).
[2021-06-30] MEDS: MESALAMINE 400 MG CAPSULE DELAYED RELEASE (DELZICOL) PO SCH (18:30)
[2021-06-30 19:00] VITALS: BP 119/62
[2021-06-30] MEDS: MIRTAZAPINE 7.5MG PER 1/2 TABLET PO SCH (21:21)
[2021-07-01 06:10] VITALS: BP 102/50
[2021-07-01 07:08] LABS: CHOLESTEROL RISK RATIO 4.187 (<5)
[2021-07-01] MEDS: THIAMINE 100 MG TAB PO SCH ×2 (09:00→21:24)
[2021-07-01] MEDS: NICOTINE 14 MG/24 HR TRANSDERMAL TD SCH (09:00)
[2021-07-01] MEDS: FOLIC ACID 1 MG TAB PO SCH (09:00)
[2021-07-01] MEDS: MULTIVITAMINS/MINERALS THERAP 1 TAB PO SCH (09:21)
[2021-07-01] MEDS: MESALAMINE 400 MG CAPSULE DELAYED RELEASE (DELZICOL) PO SCH ×2 (09:22→21:24)
[2021-07-01] MEDS: FLUoxetine 20 MG CAP PO SCH (09:22)
[2021-07-01] MEDS: buPROPion **XL** TABLET 150MG (WELLBUTRIN XL) PO SCH (11:14)
[2021-07-01 16:09] VITALS: BP 118/56
--- NOTE | 2021-07-01 16:31 | MHIPNPDOC ---
[facility] Progress Note Progress Note DATE OF SERVICE: 07/01/21 HISTORY: Patient is a 21 -year-old , male, with a history of major depressive disorder, anxiety, ADHD (age 4-5 dx), past medical history of Crohn's (mesalamine 1200 mg po BID, remicade infusion q4wks), medullary sponge kidney (takes potassium citrate) who presents after suicide attempt by overdose on trazodone in context of break up with girlfriend, was stabilized in ICU, charcoal in ED, I.V magsulf (per chart review took 5-6 pill prozac, 15-20 pills traz). Last admission Dec 2013 for SI and plan to cut wrists, jump out of window headfirst per chart review. Interval: Per communication with nursing team patient was disruptive and bullying in group, we will address through redirection to ensure therapeutic milieu. In interview today the patient is irritable for being admitted, when asked about concerns about safety in the severity of suicide attempt seems to shake his head ambivalently unconcerned. When asked about relationship as a trigger for his attempt states " I was the one who broke up with her". On further discussion reports it is an ongoing and continuous relationship situation which has not been resolved. When asked about suicidal thinking and depression denies psychiatric symptoms, however he is withdrawn, speech is nonspontaneous, has avoidant eye contact, he is uncooperative with interview and unengaged. When asked about future orientation does not appear to have any goals or future plans he can verbalize. Does endorse some anxiety and frustration with being on the unit. Denies medication side effects. VITAL SIGNS: See below. NEW TEST RESULTS: Triacylglycerol's of 175, LDL of 118, both mildly elevated CURRENT MEDICATIONS: See below. MENTAL STATUS EXAMINATION: Patient is a 21-year old male, who is in no acute distress, sitting in a chair, in hospital clothing, appears stated age, short stature, avoiding eye contact, fair hygiene, long brown hair. Speech: Is nonspontaneous, slowed, minimal amount. Language skills are poor. Thought processes including: Linear, logical. Thought content: Denies suicidal or homicidal ideation. Abstract reasoning, and computation: Intact. Description of associations: Intact. Description of abnormal or psychotic thoughts: Denies. Judgment: Poor. Insight: Very poor. Orientation: X4. Recent and remote memory: Intact. Attention span and concentration: Fair. Language: Azeri. Fund of knowledge: Below average. Mood: "Fine". Affect: Dysthymic, constricted, mood congruent DIAGNOSES: Post traumatic stress disorder Major depressive disorder, recurrent, severe, with anxious distress per hx Rule out borderline personality disorder, antisocial personality disorder Tobacco use disorder, has Wellbutrin added for mood augmentation and nicotine cravings, also has nicotine patch ASSESSMENT: Patient continues to appear dysthymic, poorly cooperative to i nterview, impulsive and pulling behavior noted on the unit which will be redirected for safety to self and others. He is tolerating medications and compliant without reported side effects. Sleep is improved appetite is normal reportedly. Agrees to adding Wellbutrin 150 mg XL after being made aware of common and rare side effects, including seizure especially if used with other s edatives or in excess, suicidal thoughts in those under age 25, increased anxiety and irritability, increased blood pressure, gastrointestinal disturbance, and other common and rare side effects. Due to the severity of the suicide attempt and the lack of insight, as well as acute stressor currently remaining without plan for modification patient remains at high risk and requires further hospital stay to maintain safety. MANAGEMENT PLAN: Start Wellbutrin 150 mg XL as an adjunct for her mood with fluoxetine 40 mg p.o. daily. Continue mirtazapine 7.5 mg nightly for sleep. Continue coordination with social work to establish safe discharge plan when patient is ready to contract for safety, and cooperate with safety planning. TIME SPENT: 30 minutes, including coordination of care Vital Signs Vital Signs Date Time Temp Pulse Resp B/P (MAP) Pulse Ox O2 Delivery O2 Flow Rate FiO2 07/01/21 16:09 97.7 70 16 118/56 (76) 100 Room Air Laboratory Data 24H Labs Laboratory Tests 2 07/01/21 06:31: Triglycerides Level 175H, Total Cholesterol 201H, LDL Cholesterol 118H, Non-HDL Cholesterol (LDL + VLDL) 153, Total HDL Cholesterol 48, Cholesterol/HDL Ratio 4.187 Current Medications Current Medications Medications (Trade) Dose Ordered Sig/Philomena Route PRN Reason Start Time Stop Time Status Last Admin Dose Admin Al Hydrox/Mg Hydrox/Simethicone (Mylanta) 30 ml Q4HP PRN PO HEARTBURN/INDIGESTION 06/29/21 18:10 Bupropion HCl (Wellbutrin Xl) 150 mg QAM PO 07/01/21 09:00 07/01/21 11:14 Fluoxetine HCl (PROzac) 40 mg QAM PO 06/30/21 09:00 06/30/21 14:55 DC Fluoxetine HCl (PROzac) 40 mg QAM PO 07/01/21 09:00 07/01/21 09:22 Folic Acid (Folic Acid) 1 mg DAILY PO 06/30/21 09:00 Ibuprofen (Advil) 400 mg Q6HP PRN PO MODERATE PAIN (PS 5-7) 06/29/21 18:10 Lorazepam (Ativan) 2 mg ASDIRECTED PRN PO SEE PROTOCOL 06/29/21 18:10 Magnesium Hydroxide (Milk Of Magnesia) 30 ml DAILYPRN PRN PO CONSTIPATION 06/29/21 18:10 Mesalamine (Delzicol) 1,200 mg BID PO 06/30/21 16:10 07/01/21 09:22 Mirtazapine (Remeron) 7.5 mg QHS PO 06/30/21 21:00 06/30/21 21:21 Multivitamins (Theragram-M) 1 tab DAILY PO 06/30/21 09:00 07/01/21 09:21 Nicotine (Nicoderm Cq 14mg) 1 patch DAILY TD 06/30/21 09:00 Olanzapine (ZyPREXA) 5 mg Q4HP PRN PO AGITATION 06/29/21 18:10 Thiamine HCl (Thiamine HCl) 100 mg BID PO 06/29/21 21:00 07/02/21 09:01 Trazodone HCl (Desyrel) 50 mg QHSP PRN PO INSOMNIA 06/29/21 18:10 06/30/21 09:47 DC 06/29/21 22:47 Allergies Coded Allergies: No Known Allergies (Unverified , 02/03/21) MARY BURNETTE MD Jul 01, 2021 16:31
[2021-07-01] MEDS: MIRTAZAPINE 7.5MG PER 1/2 TABLET PO SCH (21:24)
[2021-07-02 06:40] VITALS: BP 112/55
[2021-07-02] MEDS: MESALAMINE 400 MG CAPSULE DELAYED RELEASE (DELZICOL) PO SCH ×2 (08:40→20:13)
[2021-07-02] MEDS: FOLIC ACID 1 MG TAB PO SCH (08:40)
[2021-07-02] MEDS: THIAMINE 100 MG TAB PO SCH (08:40)
[2021-07-02] MEDS: buPROPion **XL** TABLET 150MG (WELLBUTRIN XL) PO SCH (08:41)
[2021-07-02] MEDS: FLUoxetine 20 MG CAP PO SCH (08:42)
[2021-07-02] MEDS: MULTIVITAMINS/MINERALS THERAP 1 TAB PO SCH (08:43)
[2021-07-02] MEDS: NICOTINE 14 MG/24 HR TRANSDERMAL TD SCH (08:44)
--- NOTE | 2021-07-02 12:55 | MHIPNPDOC ---
[facility] Progress Note Progress Note DATE OF SERVICE: 07/02/21 HISTORY: Patient is a 21 -year-old , male, with a history of major depressive disorder, anxiety, ADHD (age 4-5 dx), past medical history of Crohn's (mesalamine 1200 mg po BID, remicade infusion q4wks), medullary sponge kidney (takes potassium citrate) who presents after suicide attempt by overdose on trazodone in context of break up with girlfriend, was stabilized in ICU, charcoal in ED, I.V magsulf (per chart review took 5-6 pill prozac, 15-20 pills traz). Last admission Dec 2013 for SI and plan to cut wrists, jump out of window headfirst per chart review. Interval: Charts reviewed, patient was seen in the private room and responds he is " good" on all questioning, reports relationship is "good". Patient states he is frustrated possibly having to stay over the weekend and does not even know why he is here. When discussed severity of attempt, seems uninterested in discussing further and has no concern. Continues to have avoidant eye contact during these parts of the conversation. Reports he tolerates the medications without side effects, no acute physical complaints or other medical complaints. Reports sleep is "good", appetite is normal. Reports going to all the groups. VITAL SIGNS: See below. NEW TEST RESULTS: none CURRENT MEDICATIONS: See below. MENTAL STATUS EXAMINATION: Patient is a 21-year old male, who is in no acute distress, sitting in a chair, in hospital clothing, appears stated age, short stature, avoiding eye contact, fair hygiene, long nails, clenching fists tightly during interview, long brown hair. Speech: Is non-spontaneous, slowed, minimal amount. Language skills are poor. Thought processes including: Linear, logical. Thought content: Denies suicidal or homicidal ideation. Abstract reasoning, and computation: Intact. Description of associations: Intact. Description of abnormal or psychotic thoughts: Denies. Judgment: Poor. Insight: Very poor. Orientation: X4. Recent and remote memory: Intact. Attention span and concentration: Fair. Language: German. Fund of knowledge: Below average. Mood: "good". Affect: Anxious, frustrated, dysthymic, constricted, mood- incongruent DIAGNOSES: Post traumatic stress disorder Major depressive disorder, recurrent, severe, with anxious distress per hx Rule out borderline personality disorder, antisocial personality disorder Tobacco use disorder, has Wellbutrin added for mood augmentation and nicotine cravings, also has nicotine patch ASSESSMENT: Patient reports tolerating medications without side effects, reports even mood which is incongruent with affect which is anxious and depressed. Appears to have very little insight into the dangerousness of initial suicide attempt and requires extended stay due to safety risk remains. Needs more time on the unit for medications to help with mood, anxiety and importantly impulsivity. MANAGEMENT PLAN: Continue Wellbutrin 150 mg XL as an adjunct for her mood with fluoxetine 40 mg p.o. daily and mirtazapine 7.5 mg nightly for sleep. Continue coordination with social work to establish safe discharge plan when patient is ready to contract for safety, and cooperate with safety planning. TIME SPENT: 15 minutes Vital Signs Vital Signs Date Time Temp Pulse Resp B/P (MAP) Pulse Ox O2 Delivery O2 Flow Rate FiO2 07/02/21 06:40 97.6 67 18 112/55 (74) 99 Room Air Current Medications Current Medications Medications (Trade) Dose Ordered Sig/Philomena Route PRN Reason Start Time Stop Time Status Last Admin Dose Admin Al Hydrox/Mg Hydrox/Simethicone (Mylanta) 30 ml Q4HP PRN PO HEARTBURN/INDIGESTION 06/29/21 18:10 Bupropion HCl (Wellbutrin Xl) 150 mg QAM PO 07/01/21 09:00 07/02/21 08:41 Fluoxetine HCl (PROzac) 40 mg QAM PO 06/30/21 09:00 06/30/21 14:55 DC Fluoxetine HCl (PROzac) 40 mg QAM PO 07/01/21 09:00 07/02/21 08:42 Folic Acid (Folic Acid) 1 mg DAILY PO 06/30/21 09:00 07/02/21 10:00 DC 07/02/21 08:40 Ibuprofen (Advil) 400 mg Q6HP PRN PO MODERATE PAIN (PS 5-7) 06/29/21 18:10 Lorazepam (Ativan) 2 mg ASDIRECTED PRN PO SEE PROTOCOL 06/29/21 18:10 Magnesium Hydroxide (Milk Of Magnesia) 30 ml DAILYPRN PRN PO CONSTIPATION 06/29/21 18:10 Mesalamine (Delzicol) 1,200 mg BID PO 06/30/21 16:10 07/02/21 08:40 Mirtazapine (Remeron) 7.5 mg QHS PO 06/30/21 21:00 07/01/21 21:24 Multivitamins (Theragram-M) 1 tab DAILY PO 06/30/21 09:00 07/02/21 08:43 Nicotine (Nicoderm Cq 14mg) 1 patch DAILY TD 06/30/21 09:00 Olanzapine (ZyPREXA) 5 mg Q4HP PRN PO AGITATION 06/29/21 18:10 Thiamine HCl (Thiamine HCl) 100 mg BID PO 06/29/21 21:00 07/02/21 09:01 DC 07/02/21 08:40 Trazodone HCl (Desyrel) 50 mg QHSP PRN PO INSOMNIA 06/29/21 18:10 06/30/21 09:47 DC 06/29/21 22:47 Allergies Coded Allergies: No Known Allergies (Unverified , 02/03/21) MARY BURNETTE MD Jul 02, 2021 12:55
[2021-07-02 18:06] VITALS: BP 148/68
[2021-07-02] MEDS: MIRTAZAPINE 7.5MG PER 1/2 TABLET PO SCH (20:13)
[2021-07-03 07:47] VITALS: BP 138/82
[2021-07-03] MEDS: NICOTINE 14 MG/24 HR TRANSDERMAL TD SCH (08:31)
[2021-07-03] MEDS: buPROPion **XL** TABLET 150MG (WELLBUTRIN XL) PO SCH (08:32)
[2021-07-03] MEDS: FLUoxetine 20 MG CAP PO SCH (08:32)
[2021-07-03] MEDS: MESALAMINE 400 MG CAPSULE DELAYED RELEASE (DELZICOL) PO SCH ×2 (08:32→20:26)
--- NOTE | 2021-07-03 15:42 | MHIPNPDOC ---
[facility] Progress Note Progress Note DATE OF SERVICE: 07/03/21 HISTORY: Patient is a 21 -year-old , male, with a history of major depressive disorder, anxiety, ADHD (age 4-5 dx), past medical history of Crohn's (mesalamine 1200 mg po BID, remicade infusion q4wks), medullary sponge kidney (takes potassium citrate) who presents after suicide attempt by overdose on trazodone in context of break up with girlfriend, was stabilized in ICU, charcoal in ED, I.V magsulf (per chart review took 5-6 pill prozac, 15-20 pills traz). Last admission Dec 2013 for SI and plan to cut wrists, jump out of window headfirst per chart review. Interval: Charts reviewed, patient states he has no issues and denies any psychiatric symptoms, appears mildly agitated and anxious on interview and continues to have little insight into the severity of his suicide attempt pr ompting admission. Patient continues to be poorly cooperative with interview and questioning, responding with one-word answers stating "I'm fine", "good". Perseverates on wanting to leave and becomes frustrated when he understands he will be staying the weekend. VITAL SIGNS: See below. NEW TEST RESULTS: none CURRENT MEDICATIONS: See below. MENTAL STATUS EXAMINATION: Patient is a 21-year old male, who is in no acute distress, sitting on his bed in hospital clothing, appears stated age, short stature, avoids eye contact, fair hygiene, long nails, clenching fists tightly during interview, long brown hair. Speech: Is non-spontaneous, slowed, minimal amount. Language skills are poor. Thought processes including: Linear, logical. Thought content: Denies suicidal or homicidal ideation. Abstract reasoning, and computation: Intact. Description of associations: Intact. Description of abnormal or psychotic thoughts: Denies. Judgment: Poor, improving. Insight: poor, improving. Orientation: X4. Recent and remote memory: Intact. Attention span and concentration: Fair. Language: [place]. Fund of knowledge: Below average. Mood: "fine". Affect: Appears somewhat less anxious, still moderately frustrated, moderately dysthymic, constricted, mood-incongruent DIAGNOSES: Post traumatic stress disorder Major depressive disorder, recurrent, severe, with anxious distress per hx Rule out borderline personality disorder, antisocial personality disorder Tobacco use disorder, has Wellbutrin added for mood augmentation and nicotine cravings, also has nicotine patch ASSESSMENT: Patient continues to attend groups, reports tolerating medications well was overall lacking insight into the severity of his suicide attempt, responds one-word answers, somewhat despondent, without elaborating on questioning when asked safety questions. Per chart review is frustrated about finances now that he is not able to return to work until after the weekend, is ambivalent and incongruent when discussing relationship, stating it is fine when on previous days stating that they have broken up. MANAGEMENT PLAN: Continue medications, continue to monitor for safety and coordinate safety plan with social work. If continues to improve likely meet criteria for safe discharge on Tuesday. TIME SPENT: 15 minutes Vital Signs Vital Signs Date Time Temp Pulse Resp B/P (MAP) Pulse Ox O2 Delivery O2 Flow Rate FiO2 07/03/21 07:47 98.1 88 16 138/82 (100) 98 Room Air Current Medications Current Medications Medications (Trade) Dose Ordered Sig/Philomena Route PRN Reason Start Time Stop Time Status Last Admin Dose Admin Al Hydrox/Mg Hydrox/Simethicone (Mylanta) 30 ml Q4HP PRN PO HEARTBURN/INDIGESTION 06/29/21 18:10 Bupropion HCl (Wellbutrin Xl) 150 mg QAM PO 07/01/21 09:00 07/03/21 08:32 Fluoxetine HCl (PROzac) 40 mg QAM PO 06/30/21 09:00 06/30/21 14:55 DC Fluoxetine HCl (PROzac) 40 mg QAM PO 07/01/21 09:00 07/03/21 08:32 Folic Acid (Folic Acid) 1 mg DAILY PO 06/30/21 09:00 07/02/21 10:00 DC 07/02/21 08:40 Ibuprofen (Advil) 400 mg Q6HP PRN PO MODERATE PAIN (PS 5-7) 06/29/21 18:10 Lorazepam (Ativan) 2 mg ASDIRECTED PRN PO SEE PROTOCOL 06/29/21 18:10 Cancel Magnesium Hydroxide (Milk Of Magnesia) 30 ml DAILYPRN PRN PO CONSTIPATION 06/29/21 18:10 Mesalamine (Delzicol) 1,200 mg BID PO 06/30/21 16:10 07/03/21 08:32 Mirtazapine (Remeron) 7.5 mg QHS PO 06/30/21 21:00 07/02/21 20:13 Multivitamins (Theragram-M) 1 tab DAILY PO 06/30/21 09:00 07/02/21 20:18 DC 07/02/21 08:43 Nicotine (Nicoderm Cq 14mg) 1 patch DAILY TD 06/30/21 09:00 Olanzapine (ZyPREXA) 5 mg Q4HP PRN PO AGITATION 06/29/21 18:10 Thiamine HCl (Thiamine HCl) 100 mg BID PO 06/29/21 21:00 07/02/21 09:01 DC 07/02/21 08:40 Trazodone HCl (Desyrel) 50 mg QHSP PRN PO INSOMNIA 06/29/21 18:10 06/30/21 09:47 DC 06/29/21 22:47 Allergies Coded Allergies: No Known Allergies (Unverified , 02/03/21) MARY BURNETTE MD Jul 03, 2021 15:42
[2021-07-03 16:06] VITALS: BP 130/87
[2021-07-03] MEDS: MIRTAZAPINE 7.5MG PER 1/2 TABLET PO SCH (20:25)
[2021-07-04 06:17] VITALS: BP 106/61
[2021-07-04] MEDS: NICOTINE 14 MG/24 HR TRANSDERMAL TD SCH (09:00)
[2021-07-04] MEDS: buPROPion **XL** TABLET 150MG (WELLBUTRIN XL) PO SCH (09:41)
[2021-07-04] MEDS: MESALAMINE 400 MG CAPSULE DELAYED RELEASE (DELZICOL) PO SCH ×2 (09:41→20:01)
[2021-07-04] MEDS: FLUoxetine 20 MG CAP PO SCH (09:41)
[2021-07-04 16:12] VITALS: BP 123/69
[2021-07-04] MEDS ORDERED: LOPERAMIDE 2 MG CAPLET PO PRN (17:55)
[2021-07-04] MEDS ORDERED: LOPERAMIDE 2 MG CAPLET PO ONE (18:30)
[2021-07-04] MEDS: MIRTAZAPINE 7.5MG PER 1/2 TABLET PO SCH (20:01)
[2021-07-05 06:13] VITALS: BP 116/61
[2021-07-05] MEDS: MESALAMINE 400 MG CAPSULE DELAYED RELEASE (DELZICOL) PO SCH ×2 (08:46→20:11)
[2021-07-05] MEDS: buPROPion **XL** TABLET 150MG (WELLBUTRIN XL) PO SCH (08:46)
[2021-07-05] MEDS: FLUoxetine 20 MG CAP PO SCH (08:46)
[2021-07-05] MEDS: NICOTINE 14 MG/24 HR TRANSDERMAL TD SCH (08:46)
[2021-07-05 16:43] VITALS: BP 126/72
[2021-07-05] MEDS: MIRTAZAPINE 7.5MG PER 1/2 TABLET PO SCH (20:10)
[2021-07-06 06:23] VITALS: BP 121/57
[2021-07-06] MEDS: NICOTINE 14 MG/24 HR TRANSDERMAL TD SCH (09:00)
[2021-07-06] MEDS: FLUoxetine 20 MG CAP PO SCH (09:41)
[2021-07-06] MEDS: MESALAMINE 400 MG CAPSULE DELAYED RELEASE (DELZICOL) PO SCH ×2 (09:41→20:25)
[2021-07-06] MEDS: buPROPion **XL** TABLET 150MG (WELLBUTRIN XL) PO SCH (09:41)
[2021-07-06 17:16] VITALS: BP 145/67
[2021-07-06] MEDS: MIRTAZAPINE 7.5MG PER 1/2 TABLET PO SCH (20:25)
[2021-07-07 06:31] VITALS: BP 146/69
[2021-07-07] MEDS: buPROPion **XL** TABLET 150MG (WELLBUTRIN XL) PO SCH (08:53)
[2021-07-07] MEDS: FLUoxetine 20 MG CAP PO SCH (08:54)
[2021-07-07] MEDS: MESALAMINE 400 MG CAPSULE DELAYED RELEASE (DELZICOL) PO SCH (08:54)
[2021-07-07] MEDS: NICOTINE 14 MG/24 HR TRANSDERMAL TD SCH (08:56)
[2021-07-07] MEDS ORDERED: FLUO20CA22 PO (14:12)
[2021-07-07] MEDS ORDERED: BUPR150T12 PO (14:12)
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
== END 2021-07-07 15:55 | disposition home or self-care (01) | DRG 754 ==
LOC: M PSY 20:35
PROVIDERS: ADMIT Student in an Organized Health Care Education/Training Program; ATTEND Psychiatry & Neurology Child & Adolescent Psychiatry
DX: F43.21 Adjustment disorder with depressed mood (principal); F33.2 Major depressive disorder, recurrent severe without psychotic features; K50.90 Crohn's disease, unspecified, without complications; Q61.5 Medullary cystic kidney; F17.290 Nicotine dependence, other tobacco product, uncomplicated; Z91.5 Personal history of self-harm; F60.89 Other specific personality disorders; Z62.810 Personal history of physical and sexual abuse in childhood; Z79.899 Other long term (current) drug therapy; Z62.811 Personal history of psychological abuse in childhood

== ENCOUNTER → 2021-07-15 | Outpatient (CLI) | payer OTHER ==
[~2021-07-15] VITALS: Ht 165.1 cm; Wt 59.0 kg
[~2021-07-15] MED LIST changes: +BUPR150T12 PO; +INFLIXIMAB BIOSIMILAR 600 MG in NS 190 ML IV ONE; +NS 1,000 ML IV SCH
[2021-07-15 15:35] VITALS: BP 144/65
[2021-07-15 17:04] VITALS: BP 124/64
[2021-07-15 17:06] VITALS: BP 124/64
[2021-07-15 18:00] VITALS: BP 139/65
== END ==
LOC: M INFU 15:32
PROVIDERS: ATTEND Student in an Organized Health Care Education/Training Program
DX: K51.90 Ulcerative colitis, unspecified, without complications (principal)
CPT/HCPCS: 96365; Q5103

== ENCOUNTER 2021-08-12 16:06 | Outpatient (CLI) | payer OTHER ==
[~2021-08-12] VITALS: Ht 165.1 cm; Wt 59.0 kg
[2021-08-12 16:28] VITALS: BP 158/79
[2021-08-12 16:55] VITALS: BP 141/80
[2021-08-12 17:45] VITALS: BP 142/85
== END 2021-08-12 17:45 | disposition home or self-care (01) ==
LOC: M INFU 16:06
PROVIDERS: ATTEND Student in an Organized Health Care Education/Training Program
DX: K51.90 Ulcerative colitis, unspecified, without complications (principal)
CPT/HCPCS: 96365; Q5103

== ENCOUNTER 2021-09-09 15:31 | Outpatient (CLI) | payer OTHER ==
[~2021-09-09] VITALS: Ht 165.1 cm; Wt 59.0 kg
[2021-09-09 15:35] VITALS: BP_SYST 150
[2021-09-09 17:16] VITALS: BP 133/62
== END 2021-09-09 17:18 | disposition home or self-care (01) ==
LOC: M INFU 15:31
PROVIDERS: ATTEND Student in an Organized Health Care Education/Training Program
DX: K51.90 Ulcerative colitis, unspecified, without complications (principal)

== ENCOUNTER 2021-10-07 07:50 | Emergency (ER) | payer OTHER ==
[~2021-10-07] VITALS: Ht 170.2 cm; Wt 68.2 kg
[~2021-10-07 07:50] MED LIST changes: -INFLIXIMAB BIOSIMILAR 600 MG in NS 190 ML IV ONE; -NS 1,000 ML IV SCH
[2021-10-07 15:30] LABS: BASO % 0.3 % (0.0-1.0); EOS # 0.6 10^3/uL (0.0-0.5); EOS % 7.9 % (0.0-3.0); HEMATOCRIT 47.7 % (42.0-52.0); HEMOGLOBIN 15.6 g/dl (13.5-17.5); LYMPH # 1.9 10^3/uL (1.5-5.0); LYMPH % 26.3 % (24.0-44.0); MEAN CORPUSCULAR HEMOGLOBIN 28.7 pg (27.0-33.0); MEAN CORPUSCULAR HGB CONC 32.7 g/dl (32.0-36.5); MEAN CORPUSCULAR VOLUME 87.8 fl (80.0-96.0); MONO # 0.9 10^3/uL (0.0-0.8); MONO % 12.5 % (2.0-8.0); NEUTROPHILS # 3.7 10^3/uL (1.5-8.5); NEUTROPHILS % 52.9 % (36.0-66.0); PLATELET COUNT, AUTOMATED 229 10^3/uL (150-450); RED BLOOD COUNT 5.43 10^6/uL (4.30-6.10); WHITE BLOOD COUNT 7.1 10^3/uL (4.0-10.0)
[2021-10-07 16:01] LABS: ALBUMIN 4.3 GM/DL (3.2-5.2); ALT/SGPT 33 U/L (12-78); BILIRUBIN,TOTAL 0.5 MG/DL (0.2-1.0); BLOOD UREA NITROGEN 12 MG/DL (7-18); CALCIUM LEVEL 9.6 MG/DL (8.5-10.1); CARBON DIOXIDE LEVEL 26 MEQ/L (21-32); CHLORIDE LEVEL 106 MEQ/L (98-107); CREATININE FOR GFR 0.69 MG/DL (0.70-1.30); FREE T4 0.96 NG/DL (0.78-1.33); GLUCOSE, FASTING 80 MG/DL (70-100); POTASSIUM SERUM 4.1 MEQ/L (3.5-5.1); SODIUM LEVEL 140 MEQ/L (136-145); THYROID STIMULATING HORMONE 0.598 uIU/ML (0.463-3.98); TOTAL PROTEIN 7.9 GM/DL (6.4-8.2)
[2021-10-07 18:41] VITALS: BP 117/66
== END 2021-10-07 18:44 | disposition home or self-care (01) ==
LOC: M ED 07:50
DX: S06.0X9A Concussion with loss of consciousness of unspecified duration, initial encounter (principal); R94.39 Abnormal result of other cardiovascular function study; S50.12XA Contusion of left forearm, initial encounter; W18.2XXA Fall in (into) shower or empty bathtub, initial encounter; Y92.091 Bathroom in other non-institutional residence as the place of occurrence of the external cause; Y93.E1 Activity, personal bathing and showering; Y99.8 Other external cause status; Q61.5 Medullary cystic kidney; K50.90 Crohn's disease, unspecified, without complications; Z87.442 Personal history of urinary calculi; Z79.899 Other long term (current) drug therapy

== ENCOUNTER → 2021-10-21 | Outpatient (CLI) | payer OTHER ==
[2021-10-21 17:01] LABS: ALBUMIN 4.3 GM/DL (3.2-5.2); BLOOD UREA NITROGEN 12 MG/DL (7-18); CALCIUM LEVEL 9.2 MG/DL (8.5-10.1); CARBON DIOXIDE LEVEL 28 MEQ/L (21-32); CHLORIDE LEVEL 108 MEQ/L (98-107); CREATININE FOR GFR 0.79 MG/DL (0.70-1.30); GLUCOSE, FASTING 99 MG/DL (70-100); MAGNESIUM LEVEL 2.4 MG/DL (1.8-2.4); PHOSPHORUS LEVEL 3.1 MG/DL (2.5-4.9); POTASSIUM SERUM 3.9 MEQ/L (3.5-5.1); SODIUM LEVEL 141 MEQ/L (136-145)
== END ==
LOC: M LAB 15:52
PROVIDERS: ATTEND Family Medicine
DX: R94.31 Abnormal electrocardiogram [ECG] [EKG] (principal)

== ENCOUNTER → 2021-10-22 | Outpatient (CLI) | payer OTHER | LOC: M CARPUL 14:19 → M EKG 14:19 | PROVIDERS: ATTEND Family Medicine | DX: R55 Syncope and collapse (principal) ==

== ENCOUNTER 2021-11-04 15:42 | Outpatient (CLI) | payer OTHER ==
[~2021-11-04] VITALS: Ht 165.1 cm; Wt 70.0 kg
[~2021-11-04 15:42] MED LIST changes: +ACETAMINOPHEN 650MG PO PRIOR TO INFUSION PO ONE; +INFLIXIMAB BIOSIMILAR 700 MG in NS 180 ML IV ONE; +NS 1,000 ML IV SCH; +diphenhydrAMINE 25MG IV PRIOR TO INFUSION IV ONE
[2021-11-04 15:50] VITALS: BP 160/67
[2021-11-04 16:57] VITALS: BP 123/60
[2021-11-04 17:36] VITALS: BP 143/79
== END 2021-11-04 17:56 | disposition home or self-care (01) ==
LOC: M INFU 15:42
PROVIDERS: ATTEND Internal Medicine Gastroenterology
DX: K51.90 Ulcerative colitis, unspecified, without complications (principal)

== ENCOUNTER 2021-12-02 16:24 | Outpatient (CLI) | payer OTHER ==
[~2021-12-02] VITALS: Ht 165.1 cm; Wt 70.0 kg
[2021-12-02 16:59] VITALS: BP 118/65
[2021-12-02 17:30] VITALS: BP 121/73
[2021-12-02 18:30] VITALS: BP 126/64
== END 2021-12-02 18:30 | disposition home or self-care (01) ==
LOC: M INFU 16:24
PROVIDERS: ATTEND Internal Medicine Gastroenterology
DX: K50.90 Crohn's disease, unspecified, without complications (principal)
CPT/HCPCS: 96413; Q5103

== ENCOUNTER 2021-12-30 08:03 | Emergency (ER) | payer OTHER ==
[~2021-12-30] VITALS: Ht 170.2 cm; Wt 68.2 kg
[~2021-12-30 08:03] MED LIST changes: -ACETAMINOPHEN 650MG PO PRIOR TO INFUSION PO ONE; -INFLIXIMAB BIOSIMILAR 700 MG in NS 180 ML IV ONE; -NS 1,000 ML IV SCH; -diphenhydrAMINE 25MG IV PRIOR TO INFUSION IV ONE
[2021-12-30] MEDS ORDERED: IBUP200C25 PO (08:29)
[2021-12-30] MEDS ORDERED: NS 1,000 ML IV ONE (09:25)
[2021-12-30 12:37] VITALS: BP 131/66
== END 2021-12-30 12:45 | disposition home or self-care (01) ==
LOC: M ED 08:03
DX: J09.X2 Influenza due to identified novel influenza A virus with other respiratory manifestations (principal); R11.2 Nausea with vomiting, unspecified; R19.7 Diarrhea, unspecified; F90.9 Attention-deficit hyperactivity disorder, unspecified type; F32.9 Major depressive disorder, single episode, unspecified; F41.9 Anxiety disorder, unspecified; Z87.19 Personal history of other diseases of the digestive system; Z86.69 Personal history of other diseases of the nervous system and sense organs

== ENCOUNTER 2022-01-27 15:33 | Outpatient (CLI) | payer OTHER ==
[~2022-01-27] VITALS: Ht 167.6 cm; Wt 70.0 kg
[~2022-01-27 15:33] MED LIST changes: +ACETAMINOPHEN 650MG PO PRIOR TO INFUSION PO ONE; +IBUP200C25 PO; +INFLIXIMAB BIOSIMILAR 700 MG in NS 180 ML IV ONE; +NS 1,000 ML IV SCH; +diphenhydrAMINE 25MG IV PRIOR TO INFUSION IV ONE
[2022-01-27 15:45] VITALS: BP 136/76
[2022-01-27 16:19] VITALS: BP 135/75
[2022-01-27 17:00] VITALS: BP 144/75
== END 2022-01-27 17:10 | disposition home or self-care (01) ==
LOC: M INFU 15:33
PROVIDERS: ATTEND Internal Medicine Gastroenterology
DX: K50.90 Crohn's disease, unspecified, without complications (principal)
CPT/HCPCS: 96413; Q5103

== ENCOUNTER 2022-02-24 15:47 | Outpatient (CLI) | payer OTHER ==
[~2022-02-24] VITALS: Ht 167.6 cm; Wt 70.0 kg
[2022-02-24 15:50] VITALS: BP 137/70
[2022-02-24 16:10] VITALS: BP 114/59
[2022-02-24 17:00] VITALS: BP 120/68
[2022-02-24 17:06] VITALS: BP 120/68
[2022-02-24 17:45] VITALS: BP 136/68
== END 2022-02-24 17:45 | disposition home or self-care (01) ==
LOC: M INFU 15:47
PROVIDERS: ATTEND Internal Medicine Gastroenterology
DX: K50.90 Crohn's disease, unspecified, without complications (principal)
CPT/HCPCS: 96413; Q5103

== ENCOUNTER 2022-03-24 13:51 | Outpatient (CLI) | payer OTHER ==
[~2022-03-24 13:51] MED LIST changes: -ACETAMINOPHEN 650MG PO PRIOR TO INFUSION PO ONE; -INFLIXIMAB BIOSIMILAR 700 MG in NS 180 ML IV ONE; -NS 1,000 ML IV SCH; -diphenhydrAMINE 25MG IV PRIOR TO INFUSION IV ONE
[2022-03-24 14:10] VITALS: BP 138/82
[2022-03-24] MEDS ORDERED: ACETAMINOPHEN 650MG PO PRIOR TO INFUSION PO ONE (15:30)
[2022-03-24] MEDS ORDERED: INFLIXIMAB BIOSIMILAR 700 MG in NS 180 ML IV ONE (15:30)
[2022-03-24] MEDS ORDERED: NS 1,000 ML IV SCH (15:30)
[2022-03-24] MEDS ORDERED: diphenhydrAMINE 25MG IV PRIOR TO INFUSION IV ONE (15:30)
[2022-03-24 15:35] VITALS: BP 134/79
== END 2022-03-24 15:35 | disposition home or self-care (01) ==
LOC: M INFU 13:51
PROVIDERS: ATTEND Internal Medicine Gastroenterology
DX: K51.90 Ulcerative colitis, unspecified, without complications (principal)
CPT/HCPCS: 96413; Q5103

== ENCOUNTER → 2022-04-08 | Outpatient (CLI) | payer OTHER | LOC: M LAB 15:35 | PROVIDERS: ATTEND Internal Medicine Gastroenterology | DX: K51.90 Ulcerative colitis, unspecified, without complications (principal) ==

== ENCOUNTER → 2022-04-08 | Outpatient (CLI) | payer OTHER ==
[2022-04-08 16:16] LABS: BASO % 0.4 % (0.0-1.0); EOS # 0.4 10^3/uL (0.0-0.5); HEMATOCRIT 41.7 % (42.0-52.0); HEMOGLOBIN 13.8 g/dl (13.5-17.5); LYMPH # 2.3 10^3/uL (1.5-5.0); LYMPH % 28.8 % (24.0-44.0); MEAN CORPUSCULAR HEMOGLOBIN 28.8 pg (27.0-33.0); MEAN CORPUSCULAR HGB CONC 33.1 g/dl (32.0-36.5); MEAN CORPUSCULAR VOLUME 87.1 fl (80.0-96.0); MONO # 0.7 10^3/uL (0.0-0.8); MONO % 8.6 % (2.0-8.0); NEUTROPHILS # 4.6 10^3/uL (1.5-8.5); PLATELET COUNT, AUTOMATED 215 10^3/uL (150-450); RED BLOOD COUNT 4.79 10^6/uL (4.30-6.10)
[2022-04-08 16:48] LABS: ALBUMIN 4.2 GM/DL (3.2-5.2); ALT/SGPT 13 U/L (12-78); BILIRUBIN,TOTAL 0.6 MG/DL (0.2-1.0); BLOOD UREA NITROGEN 8 MG/DL (7-18); CALCIUM LEVEL 9.5 MG/DL (8.5-10.1); CARBON DIOXIDE LEVEL 26 MEQ/L (21-32); CHLORIDE LEVEL 109 MEQ/L (98-107); CREATININE FOR GFR 0.74 MG/DL (0.70-1.30); FERRITIN 38 NG/ML (26-388); GLUCOSE, FASTING 82 MG/DL (70-100); MAGNESIUM LEVEL 2.1 MG/DL (1.8-2.4); POTASSIUM SERUM 3.8 MEQ/L (3.5-5.1); SODIUM LEVEL 142 MEQ/L (136-145); TOTAL PROTEIN 7.4 GM/DL (6.4-8.2)
== END ==
LOC: M LAB 15:32
PROVIDERS: ATTEND Family Medicine
DX: E55.9 Vitamin D deficiency, unspecified (principal)

== ENCOUNTER 2022-04-21 15:40 | Outpatient (CLI) | payer OTHER ==
[~2022-04-21] VITALS: Ht 170.2 cm; Wt 63.6 kg
[2022-04-21 15:40] VITALS: BP 153/73
[~2022-04-21 15:40] MED LIST changes: +ACETAMINOPHEN 650MG PO PRIOR TO INFUSION PO ONE; +INFLIXIMAB BIOSIMILAR 700 MG in NS 180 ML IV ONE; +NS 1,000 ML IV SCH; +diphenhydrAMINE 25MG IV PRIOR TO INFUSION IV ONE
[2022-04-21 16:40] VITALS: BP 120/59
[2022-04-21 17:18] VITALS: BP 127/58
== END 2022-04-21 17:26 | disposition home or self-care (01) ==
LOC: M INFU 15:40
PROVIDERS: ATTEND Internal Medicine Gastroenterology
DX: K50.90 Crohn's disease, unspecified, without complications (principal)
CPT/HCPCS: 96413; Q5103

== ENCOUNTER 2022-05-20 16:27 | Outpatient (CLI) | payer OTHER ==
[~2022-05-20] VITALS: Ht 170.2 cm; Wt 70.0 kg
[2022-05-20 15:55] VITALS: BP 132/66
[2022-05-20 16:55] VITALS: BP 128/60
[2022-05-20 17:45] VITALS: BP 124/66
== END 2022-05-20 17:45 | disposition home or self-care (01) ==
LOC: M INFU 16:27
PROVIDERS: ATTEND Internal Medicine Gastroenterology
DX: K51.90 Ulcerative colitis, unspecified, without complications (principal)
CPT/HCPCS: 96413; Q5103

== ENCOUNTER 2022-06-16 15:30 | Outpatient (CLI) | payer OTHER ==
[~2022-06-16] VITALS: Ht 172.7 cm; Wt 61.3 kg
[2022-06-16 15:41] VITALS: BP 152/79
[2022-06-16 16:30] VITALS: BP 121/68
[2022-06-16 17:23] VITALS: BP 128/74
== END 2022-06-16 17:20 | disposition home or self-care (01) ==
LOC: M INFU 15:30
PROVIDERS: ATTEND Internal Medicine Gastroenterology
DX: K51.90 Ulcerative colitis, unspecified, without complications (principal)
CPT/HCPCS: 96413; Q5103

== ENCOUNTER 2022-07-14 15:05 | Outpatient (CLI) | payer OTHER ==
[~2022-07-14] VITALS: Ht 172.7 cm; Wt 70.0 kg
[2022-07-14 15:05] VITALS: BP 131/63
[~2022-07-14 15:05] MED LIST changes: -ACETAMINOPHEN 650MG PO PRIOR TO INFUSION PO ONE; -INFLIXIMAB BIOSIMILAR 700 MG in NS 180 ML IV ONE; -NS 1,000 ML IV SCH; -diphenhydrAMINE 25MG IV PRIOR TO INFUSION IV ONE
[2022-07-14] MEDS ORDERED: ACETAMINOPHEN 650MG PO PRIOR TO INFUSION PO ONE (15:30)
[2022-07-14] MEDS ORDERED: diphenhydrAMINE 25MG IV PRIOR TO INFUSION IV ONE (15:30)
[2022-07-14] MEDS ORDERED: INFLIXIMAB BIOSIMILAR 700 MG in NS 180 ML IV ONE (15:30)
[2022-07-14] MEDS ORDERED: NS 1,000 ML IV SCH (15:30)
[2022-07-14 16:30] VITALS: BP 124/59
[2022-07-14 17:20] VITALS: BP_SYST 138; BP_SYST 99; BP_DIAS 56; BP_DIAS 68
== END 2022-07-14 17:20 | disposition home or self-care (01) ==
LOC: M INFU 15:05
PROVIDERS: ATTEND Internal Medicine Gastroenterology
DX: K51.90 Ulcerative colitis, unspecified, without complications (principal)
CPT/HCPCS: 96413; Q5103

== ENCOUNTER 2022-08-11 15:20 | Outpatient (CLI) | payer OTHER ==
[2022-08-11 15:20] VITALS: BP 140/78
[2022-08-11] MEDS ORDERED: diphenhydrAMINE 25MG IV PRIOR TO INFUSION IV ONE (15:30)
[2022-08-11] MEDS ORDERED: NS 1,000 ML IV SCH (15:30)
[2022-08-11] MEDS ORDERED: ACETAMINOPHEN 650MG PO PRIOR TO INFUSION PO ONE (15:30)
[2022-08-11] MEDS ORDERED: INFLIXIMAB BIOSIMILAR 700 MG in NS 180 ML IV ONE (15:30)
[2022-08-11 17:15] VITALS: BP 152/78
== END 2022-08-11 17:15 | disposition home or self-care (01) ==
LOC: M INFU 15:20
PROVIDERS: ATTEND Internal Medicine Gastroenterology
DX: K51.90 Ulcerative colitis, unspecified, without complications (principal)
CPT/HCPCS: 96413; Q5103

== ENCOUNTER → 2022-08-27 | Outpatient (CLI) | payer OTHER | LOC: M PLALAB 13:25 | PROVIDERS: ATTEND Internal Medicine Gastroenterology | DX: K51.90 Ulcerative colitis, unspecified, without complications (principal) ==

== ENCOUNTER → 2022-08-27 | Outpatient (CLI) | payer OTHER ==
[2022-08-27 16:06] LABS: BASO % 0.3 % (0.0-1.0); EOS # 0.2 10^3/uL (0.0-0.5); EOS % 2.7 % (0.0-3.0); HEMATOCRIT 46.3 % (42.0-52.0); HEMOGLOBIN 15.2 g/dl (13.5-17.5); LYMPH # 2.3 10^3/uL (1.5-5.0); LYMPH % 31.9 % (24.0-44.0); MEAN CORPUSCULAR HEMOGLOBIN 29.7 pg (27.0-33.0); MEAN CORPUSCULAR HGB CONC 32.8 g/dl (32.0-36.5); MEAN CORPUSCULAR VOLUME 90.4 fl (80.0-96.0); MONO # 0.5 10^3/uL (0.0-0.8); MONO % 6.7 % (2.0-8.0); NEUTROPHILS # 4.2 10^3/uL (1.5-8.5); NEUTROPHILS % 58.1 % (36.0-66.0); PLATELET COUNT, AUTOMATED 214 10^3/uL (150-450); RED BLOOD COUNT 5.12 10^6/uL (4.30-6.10); WHITE BLOOD COUNT 7.3 10^3/uL (4.0-10.0)
[2022-08-27 16:07] LABS: HEMATOCRIT 48.8 % (42.0-52.0)
[2022-08-27 16:53] LABS: ERYTHROCYTE SEDIMENTATION RATE 3 mm/hr (0-15)
[2022-08-27 16:58] LABS: C REACTIVE PROTEIN QUANTITATIV < 0.30 MG/DL (0.00-0.30); CHOLESTEROL LEVEL 212 MG/DL (<200); CHOLESTEROL RISK RATIO 3.719 (<5); FERRITIN 24 NG/ML (26-388); FREE T4 0.96 NG/DL (0.76-1.46); HDL CHOLESTEROL 57 MG/DL (>40); LDL CHOLESTEROL 137 MG/DL (<100); NON-HDL-C 155 MG/DL; TRIGLYCERIDES LEVEL 88 MG/DL (<150)
[2022-08-30 13:24] LABS: VITAMIN B12 LEVEL 385 PG/ML (247-911)
== END ==
LOC: M PLALAB 13:26
PROVIDERS: ATTEND Family Medicine
DX: D50.9 Iron deficiency anemia, unspecified (principal)

== ENCOUNTER → 2022-09-08 | Outpatient (CLI) | payer OTHER ==
[~2022-09-08] VITALS: Ht 170.2 cm; Wt 66.0 kg
[~2022-09-08] MED LIST changes: +ACETAMINOPHEN 650MG PO PRIOR TO INFUSION PO ONE; +INFLIXIMAB BIOSIMILAR 700 MG in NS 180 ML IV ONE; +NS 1,000 ML IV SCH; +diphenhydrAMINE 25MG IV PRIOR TO INFUSION IV ONE
[2022-09-08 13:00] VITALS: BP 126/72
[2022-09-08 14:20] VITALS: BP 120/69
[2022-09-08 15:10] VITALS: BP 133/68
== END ==
LOC: M INFU 13:00
PROVIDERS: ATTEND Internal Medicine Gastroenterology
DX: K51.90 Ulcerative colitis, unspecified, without complications (principal)
CPT/HCPCS: 36592; 86480; 96413; Q5103

== ENCOUNTER 2022-10-06 13:10 | Outpatient (CLI) | payer OTHER ==
[~2022-10-06] VITALS: Ht 170.2 cm; Wt 66.0 kg
[2022-10-06 13:10] VITALS: BP 128/65
[2022-10-06 14:55] VITALS: BP 137/68
== END 2022-10-06 15:10 | disposition home or self-care (01) ==
LOC: M INFU 13:10
PROVIDERS: ATTEND Internal Medicine Gastroenterology
DX: K51.90 Ulcerative colitis, unspecified, without complications (principal)
CPT/HCPCS: 96413; Q5103

== ENCOUNTER 2022-11-03 13:00 | Outpatient (CLI) | payer OTHER ==
[~2022-11-03] VITALS: Ht 170.2 cm; Wt 66.0 kg
[2022-11-03 13:00] VITALS: BP 149/75
[2022-11-03 15:10] VITALS: BP 129/69
== END 2022-11-03 15:10 | disposition home or self-care (01) ==
LOC: M INFU 13:00
PROVIDERS: ATTEND Internal Medicine Gastroenterology
DX: K51.90 Ulcerative colitis, unspecified, without complications (principal)
CPT/HCPCS: 96413; Q5103

== ENCOUNTER 2022-12-01 13:30 | Outpatient (CLI) | payer OTHER ==
[~2022-12-01] VITALS: Ht 170.2 cm; Wt 70.0 kg
[2022-12-01 13:30] VITALS: BP 134/76
[~2022-12-01 13:30] MED LIST changes: -ACETAMINOPHEN 650MG PO PRIOR TO INFUSION PO ONE
[2022-12-01 14:50] VITALS: BP 134/62
[2022-12-01 15:46] VITALS: BP 128/84
== END 2022-12-01 15:45 | disposition home or self-care (01) ==
LOC: M INFU 13:30
PROVIDERS: ATTEND Internal Medicine Gastroenterology
DX: K51.90 Ulcerative colitis, unspecified, without complications (principal)
CPT/HCPCS: 96413; Q5103

== ENCOUNTER 2022-12-31 15:05 | Outpatient (CLI) | payer OTHER ==
[~2022-12-31] VITALS: Ht 170.2 cm; Wt 70.0 kg
[2022-12-31 15:05] VITALS: BP 118/63
[~2022-12-31 15:05] MED LIST changes: +ACETAMINOPHEN 650MG PO PRIOR TO INFUSION PO ONE
[2022-12-31 16:10] VITALS: BP 122/57
[2022-12-31 17:00] VITALS: BP 134/60
== END 2022-12-31 17:00 | disposition home or self-care (01) ==
LOC: M INFU 15:05
PROVIDERS: ATTEND Internal Medicine Gastroenterology
DX: K51.90 Ulcerative colitis, unspecified, without complications (principal)
CPT/HCPCS: 96372; Q5103

== ENCOUNTER 2023-01-28 13:00 | Outpatient (CLI) | payer OTHER ==
[~2023-01-28] VITALS: Ht 170.2 cm; Wt 70.0 kg
[2023-01-28 13:15] VITALS: BP 135/60
[2023-01-28 14:00] VITALS: BP 143/69
[2023-01-28 14:57] VITALS: BP 154/66
== END 2023-01-28 16:00 | disposition home or self-care (01) ==
LOC: M INFU 13:00
PROVIDERS: ATTEND Internal Medicine Gastroenterology
DX: K51.90 Ulcerative colitis, unspecified, without complications (principal)
CPT/HCPCS: 96413; Q5103

== ENCOUNTER 2023-02-25 13:00 | Outpatient (CLI) | payer OTHER ==
[~2023-02-25] VITALS: Ht 170.2 cm; Wt 70.0 kg
[2023-02-25 13:05] VITALS: BP 131/65
[2023-02-25 14:15] VITALS: BP 109/53
[2023-02-25 15:13] VITALS: BP 119/68
== END 2023-02-25 15:15 | disposition home or self-care (01) ==
LOC: M INFU 13:00
PROVIDERS: ATTEND Internal Medicine Gastroenterology
DX: K51.90 Ulcerative colitis, unspecified, without complications (principal)
CPT/HCPCS: 96413; Q5103

== ENCOUNTER 2023-03-25 13:02 | Outpatient (CLI) | payer OTHER ==
[~2023-03-25] VITALS: Ht 167.6 cm; Wt 54.0 kg
[2023-03-25 13:02] VITALS: BP 119/76
[~2023-03-25 13:02] MED LIST changes: -diphenhydrAMINE 25MG IV PRIOR TO INFUSION IV ONE
[2023-03-25 14:10] VITALS: BP 129/76
[2023-03-25 15:07] VITALS: BP 147/88
== END 2023-03-25 15:10 | disposition home or self-care (01) ==
LOC: M INFU 13:02
PROVIDERS: ATTEND Internal Medicine Gastroenterology
DX: K51.90 Ulcerative colitis, unspecified, without complications (principal)
CPT/HCPCS: 96413; Q5103

== ENCOUNTER 2023-05-13 10:00 | Outpatient (CLI) | payer OTHER ==
[2023-05-13 10:00] VITALS: BP 135/70; TEMP 97.9; O2SAT 99
[~2023-05-13 10:00] MED LIST changes: +INFLIXIMAB BIOSIMILAR 600 MG in NS 190 ML IV ONE; -INFLIXIMAB BIOSIMILAR 700 MG in NS 180 ML IV ONE; -K-TA10TA2 PO; +POTA-165 PO; +diphenhydrAMINE 25MG IV PRIOR TO INFUSION IV ONE
[2023-05-13 11:36] VITALS: BP 139/79; O2SAT 100
== END 2023-05-13 11:35 ==
LOC: M INFU 10:00
PROVIDERS: ATTEND Internal Medicine Gastroenterology
DX: K51.90 Ulcerative colitis, unspecified, without complications (principal)
CPT/HCPCS: 96413; Q5103

== ENCOUNTER 2023-06-10 13:01 | Outpatient (CLI) | payer OTHER ==
[~2023-06-10] VITALS: Ht 170.2 cm; Wt 62.7 kg
[~2023-06-10 13:01] MED LIST changes: -ACETAMINOPHEN 650MG PO PRIOR TO INFUSION PO ONE; -INFLIXIMAB BIOSIMILAR 600 MG in NS 190 ML IV ONE; -NS 1,000 ML IV SCH; -diphenhydrAMINE 25MG IV PRIOR TO INFUSION IV ONE
[2023-06-10 13:05] VITALS: BP 128/72; O2SAT 97
[2023-06-10] MEDS ORDERED: ACETAMINOPHEN 650MG PO PRIOR TO INFUSION PO ONE (13:30)
[2023-06-10] MEDS ORDERED: NS 1,000 ML IV SCH (13:30)
[2023-06-10] MEDS ORDERED: diphenhydrAMINE 25MG IV PRIOR TO INFUSION IV ONE (13:30)
[2023-06-10] MEDS ORDERED: INFLIXIMAB BIOSIMILAR 600 MG in NS 190 ML IV ONE (13:30)
[2023-06-10 14:15] VITALS: BP 124/59; O2SAT 100
[2023-06-10 15:00] VITALS: BP 126/69; O2SAT 100
== END 2023-06-10 15:05 ==
LOC: M INFU 13:01
PROVIDERS: ATTEND Internal Medicine Gastroenterology
DX: K51.90 Ulcerative colitis, unspecified, without complications (principal)
CPT/HCPCS: 96413; Q5103

== ENCOUNTER 2023-08-18 13:10 | Outpatient (CLI) | payer OTHER, SELFPAY ==
[2023-08-18 13:10] VITALS: BP 136/80; TEMP 97.9; O2SAT 96
[~2023-08-18 13:10] MED LIST changes: +ACETAMINOPHEN TAB 650MG DOSE (2X325MG) PO ONE; +NS 1,000 ML IV SCH; +diphenhydrAMINE 50MG/ML VIAL IV ONE
[2023-08-18] MEDS ORDERED: INFLIXIMAB BIOSIMILAR 600 MG in NS 190 ML IV ONE (13:15)
[2023-08-18] MEDS ORDERED: ACETAMINOPHEN 650MG PO PRIOR TO INFUSION PO ONE (13:15)
[2023-08-18] MEDS ORDERED: NS 1,000 ML IV SCH (13:15)
[2023-08-18] MEDS ORDERED: diphenhydrAMINE 25MG IV PRIOR TO INFUSION IV ONE (13:15)
[2023-08-18 14:15] VITALS: BP 118/61; TEMP 97.3; O2SAT 99
[2023-08-18 15:20] VITALS: BP 127/77; O2SAT 100
== END 2023-08-18 15:25 | disposition home or self-care (01) ==
LOC: M INFU 13:10
PROVIDERS: ATTEND Internal Medicine Gastroenterology
DX: K51.90 Ulcerative colitis, unspecified, without complications (principal)
CPT/HCPCS: 96375; 96413; J1200; Q5103

== ENCOUNTER 2023-09-16 14:05 | Outpatient (CLI) | payer OTHER ==
[~2023-09-16] VITALS: Ht 175.3 cm; Wt 66.8 kg
[~2023-09-16 14:05] MED LIST changes: -ACETAMINOPHEN TAB 650MG DOSE (2X325MG) PO ONE; -NS 1,000 ML IV SCH; -diphenhydrAMINE 50MG/ML VIAL IV ONE
[2023-09-16] MEDS ORDERED: INFLIXIMAB BIOSIMILAR 600 MG in NS 190 ML IV ONE (14:15)
[2023-09-16] MEDS ORDERED: diphenhydrAMINE 25MG IV PRIOR TO INFUSION IV ONE (14:15)
[2023-09-16] MEDS ORDERED: NS 1,000 ML IV SCH (14:15)
[2023-09-16] MEDS ORDERED: ACETAMINOPHEN 650MG PO PRIOR TO INFUSION PO ONE (14:15)
[2023-09-16 14:19] VITALS: BP 132/68; TEMP 97.9; O2SAT 98
[2023-09-16 16:00] VITALS: BP 124/70; TEMP 98.6; O2SAT 97
== END 2023-09-16 16:10 | disposition home or self-care (01) ==
LOC: M INFU 14:05
PROVIDERS: ATTEND Internal Medicine Gastroenterology
DX: K51.90 Ulcerative colitis, unspecified, without complications (principal)
CPT/HCPCS: 96413; Q5103

== ENCOUNTER 2023-10-18 15:30 | Outpatient (CLI) | payer OTHER ==
[~2023-10-18] VITALS: Ht 170.2 cm; Wt 70.0 kg
[2023-10-18 15:52] VITALS: BP 149/68; TEMP 99; O2SAT 97
[2023-10-18] MEDS ORDERED: INFLIXIMAB BIOSIMILAR 700 MG in NS 180 ML IV ONE (16:00)
[2023-10-18] MEDS ORDERED: ACETAMINOPHEN 650MG PO PRIOR TO INFUSION PO ONE (16:00)
[2023-10-18] MEDS ORDERED: diphenhydrAMINE 25MG IV PRIOR TO INFUSION IV ONE (16:00)
[2023-10-18] MEDS ORDERED: NS 1,000 ML IV SCH (16:00)
[2023-10-18 17:35] VITALS: BP 133/65; TEMP 99.1; O2SAT 99
== END 2023-10-18 17:35 | disposition home or self-care (01) ==
LOC: M INFU 15:30
PROVIDERS: ATTEND Internal Medicine Gastroenterology
DX: K51.90 Ulcerative colitis, unspecified, without complications (principal)
CPT/HCPCS: 96413; Q5103

== ENCOUNTER → 2023-11-05 | Outpatient (CLI) | payer OTHER | LOC: M LAB 12:44 | PROVIDERS: ATTEND Internal Medicine Gastroenterology | DX: Z01.89 Encounter for other specified special examinations (principal) ==

== ENCOUNTER → 2024-10-16 | Outpatient (CLI) | payer OTHER ==
[~2024-10-16] MED LIST changes: +FLUO-365 PO; -FLUO20CA22 PO; +POTA10807 PO; -POTA10808 PO; +POTA10809 PO
[2024-10-16 15:01] LABS: BASO % 0.4 % (0.0-1.0); EOS # 0.3 10^3/uL (0.0-0.5); EOS % 3.4 % (0.0-3.0); HEMATOCRIT 43.9 % (42.0-52.0); HEMATOCRIT 44.4 % (42.0-52.0); HEMOGLOBIN 15.1 g/dl (13.5-17.5); LYMPH # 2.6 10^3/uL (1.5-5.0); LYMPH % 30.4 % (24.0-44.0); MEAN CORPUSCULAR HEMOGLOBIN 29.8 pg (27.0-33.0); MEAN CORPUSCULAR HGB CONC 34.4 g/dl (32.0-36.5); MEAN CORPUSCULAR VOLUME 86.8 fl (80.0-96.0); MONO # 0.7 10^3/uL (0.0-0.8); MONO % 7.7 % (2.0-8.0); NEUTROPHILS # 4.9 10^3/uL (1.5-8.5); NEUTROPHILS % 57.7 % (36.0-66.0); PLATELET COUNT, AUTOMATED 227 10^3/uL (150-450); RED BLOOD COUNT 5.06 10^6/uL (4.30-6.10); WHITE BLOOD COUNT 8.4 10^3/uL (4.0-10.0)
[2024-10-16 15:17] LABS: ERYTHROCYTE SEDIMENTATION RATE 9 mm/hr (0-15)
[2024-10-16 15:29] LABS: C REACTIVE PROTEIN QUANTITATIV < 0.50 MG/DL (<1.0); CHOLESTEROL LEVEL 207 MG/DL (<200); CHOLESTEROL RISK RATIO 3.72 (<5); FREE T4 1.18 NG/DL (0.89-1.76); HDL CHOLESTEROL 55.5 MG/DL (>40); LDL CHOLESTEROL 142.9 MG/DL (<100); NON-HDL-C 151.5 MG/DL; THYROGLOBULIN ANTIBODY < 15.0 U/ML (<60.0); THYROID PEROXIDASE ANTIBODY < 28.0 U/ML (<60.0); THYROID STIMULATING HORMONE 1.188 uIU/ML (0.55-4.78); TRIGLYCERIDES LEVEL 43 MG/DL (<150)
[2024-10-16 15:30] LABS: FERRITIN 47.8 NG/ML (10.5-307.3)
[2024-10-16 15:31] LABS: VITAMIN B12 LEVEL 402 PG/ML (211-911)
== END ==
LOC: M LAB 13:52
PROVIDERS: ATTEND Family Medicine
DX: D50.9 Iron deficiency anemia, unspecified (principal)

== ENCOUNTER → 2024-11-27 | Outpatient (CLI) | payer OTHER | LOC: M RAD 10:19 | PROVIDERS: ATTEND Family Medicine | DX: R16.1 Splenomegaly, not elsewhere classified (principal) ==